=== PATIENT | male | born 1930 | race Caucasian/White ===

== ENCOUNTER → 2016-10-08 | Outpatient (CLI) | payer MEDICARE ==
[~2016-10-08] VITALS: Ht 180.3 cm; Wt 93.4 kg
[~2016-10-08] MED LIST: INSULIN HUMAN REGULAR 1,000 UNITS/10 ML VIAL SQ PRN; LACTATED RINGER'S 1000 ML IV SCH; LISI10TA3 PO; METH5TAB4 PO; METOPROLOL TARTRATE 25 MG TAB PO PRN; OCTR30VI3 IM; ONABOTULINUMTOXINA INJ 100 UNITS/VIAL ONE; ONABOTULINUMTOXINA INJ 100 UNITS/VIAL SCH; PROPOFOL 200 MG/20 ML AMP IV ONE; SODIUM CHLORID 0.9% 500 ML IV SCH; VITA100021 SL; VITA400C2 PO
[2016-10-08 09:41] VITALS: BP 205/82; PULSE 58; RESP 18; TEMP 97.9; O2SAT 100
[2016-10-08 13:08] VITALS: TEMP 97.7
[2016-10-08 13:30] VITALS: BP 155/65; PULSE 56; RESP 16; O2SAT 97
--- NOTE | 2016-10-08 16:08 | EKG ---
Date Performed: 10/08/2016 Time Performed: 09:41:10 PTAGE: 86 years EKG: SINUS BRADYCARDIA RIGHT BUNDLE BRANCH BLOCK LEFT ANTERIOR FASCICULAR BLOCK ABNORMAL ECG NO PREVIOUS TRACING DOCTOR: Jesse Carpio Interpretating Date/Time 10/08/2016 16:08:00
== END ==
LOC: HEND 08:46
PROVIDERS: ATTEND Internal Medicine Gastroenterology
DX: K22.0 Achalasia of cardia (principal); R13.10 Dysphagia, unspecified; K22.2 Esophageal obstruction; K44.9 Diaphragmatic hernia without obstruction or gangrene; R94.31 Abnormal electrocardiogram [ECG] [EKG]
CPT/HCPCS: 43236; 43239; 43248; 88305; 93005; 99156; C1769; J0585; J7120

== ENCOUNTER 2017-11-04 12:09 | Inpatient (IN) | payer MEDICARE ==
[2017-11-04] VITALS (8 sets, daily range): BP systolic 128–184; BP diastolic 67–79; PULSE 65–77; RESP 14–18; TEMP 95.8–97.7; O2SAT 96–100
[~2017-11-04] VITALS: Ht 180.3 cm; Wt 86.0 kg
[~2017-11-04 12:09] MED LIST changes: -INSULIN HUMAN REGULAR 1,000 UNITS/10 ML VIAL SQ PRN; -LACTATED RINGER'S 1000 ML IV SCH; -METOPROLOL TARTRATE 25 MG TAB PO PRN; -ONABOTULINUMTOXINA INJ 100 UNITS/VIAL ONE; -ONABOTULINUMTOXINA INJ 100 UNITS/VIAL SCH; -PROPOFOL 200 MG/20 ML AMP IV ONE; -SODIUM CHLORID 0.9% 500 ML IV SCH
[2017-11-04 13:18] LABS: AUTOMATED NEUTROPHIL # 5.2 TH/MM3 (1.8-7.7); BASOPHIL % 0.7 % (0.0-2.0); EOSINOPHIL % 0.4 % (0.0-4.0); HEMATOCRIT 23.7 % (39.0-51.0); HEMOGLOBIN 7.9 GM/DL (13.0-17.0); LYMPH % 16.9 % (9.0-44.0); LYMPHOCYTE # 1.2 TH/MM3 (1.0-4.8); MEAN CELL VOLUME 91.5 FL (80.0-100.0); MEAN CORPUSCULAR HEMOGLOBIN 30.7 PG (27.0-34.0); MEAN CORPUSCULAR HGB CONC 33.6 % (32.0-36.0); MEAN PLATELET VOLUME 8.5 FL (7.0-11.0); MONO % 11.9 % (0.0-8.0); MONOCYTE # 0.9 TH/MM3 (0-0.9); NEUT % 70.1 % (16.0-70.0); PLATELET COUNT 265 TH/MM3 (150-450); RED BLOOD COUNT 2.59 MIL/MM3 (4.50-5.90); RED CELL DISTRIBUTION WIDTH 15.9 % (11.6-17.2); WHITE BLOOD COUNT 7.3 TH/MM3 (4.0-11.0)
[2017-11-04 13:30] LABS: PROTHROMBIN TIME - PATIENT 10.6 SEC (9.8-11.6)
[2017-11-04 13:36] LABS: ALBUMIN 3.3 GM/DL (3.4-5.0); AST (GOT) 25 U/L (15-37); BICARBONATE 23.6 MEQ/L (21.0-32.0); BLOOD UREA NITROGEN 30 MG/DL (7-18); CALCIUM 8.3 MG/DL (8.5-10.1); CHLORIDE 110 MEQ/L (98-107); GLOMERULAR FILTRATION RATE 32 ML/MIN (>89); GLUCOSE,RANDOM 80 MG/DL (74-106); SODIUM (NA) 140 MEQ/L (136-145)
[2017-11-04 13:39] LABS: ALKALINE PHOSPHATASE 109 U/L (45-117); ALT (GPT) 56 U/L (12-78); TOTAL BILIRUBIN ADULT 0.3 MG/DL (0.2-1.0); TOTAL PROTEIN 6.7 GM/DL (6.4-8.2)
[2017-11-04] MEDS ORDERED: FERR325T18 PO (14:45)
[2017-11-04] MEDS ORDERED: HYDR-3799 PO (14:45)
[2017-11-04] MEDS ORDERED: TAMS0.4C4 PO (14:45)
--- NOTE | 2017-11-04 14:53 | PD ---
HPI Chief Complaint: GI Complaint Time Seen by Provider: 14:33 Travel History International Travel<30 days: No Contact w/Intl Traveler<30days: No Traveled to known affect area: No History of Present Illness HPI 87-year-old male presents for evaluation of GI bleeding. He reports that this morning he had 2 bowel movements with associated dark red blood. Denies any black or tarry stools. He does report that he had some abdominal cramping during the bowel movements but none currently. He reports associated lightheadedness today. He takes a baby aspirin on a daily basis, denies any other anticoagulant use. He reports that he was admitted at [facility] for 8 days for evaluation of GI bleed, discharged 2 days ago. He reports that they could not find the source of the bleeding. He has no other complaints at this time. PFSH Past Medical History Cancer: Yes (SKIN) Cardiovascular Problems: No Diabetes: No Endocrine: No Gastrointestinal Disorders: Yes (REFLUX) Glaucoma: No Genitourinary: No Hepatitis: No Hiatal Hernia: No Hypertension: Yes Immune Disorder: No Musculoskeletal: No Neurologic: No Psychiatric: No Reproductive: No Respiratory: No Thyroid Disease: Yes Tetanus Vaccination: Unknown Influenza Vaccination: No Past Surgical History Abdominal Surgery: Yes (COLECTOMY?) AICD: No Body Medical Devices: RIGHT ANKLE PLATE AND SCREWS Cardiac Surgery: No Ear Surgery: No Endocrine Surgery: No Eye Surgery: Yes (BILAT. CATARACT SX) Genitourinary Surgery: Yes (TURP) Gynecologic Surgery: No Joint Replacement: No Oral Surgery: No Pacemaker: No Thoracic Surgery: Yes (OUTER SKIN NODULES REMOVED) Other Surgery: Yes Social History Alcohol Use: Yes (2 DRINKS/DAY) Tobacco Use: No (QUIT 40 YEARS AGO) Substance Use: No Allergies-Medications (Allergen,Severity, Reaction): Coded Allergies: No Known Allergies (Verified Adverse Reaction, Unknown, 11/04/17) Reported Meds & Prescriptions Reported Meds & Active Scripts Active Reported Hydralazine HCl 25 Mg Tablet 50 Mg PO BID Tamsulosin (Tamsulosin HCl) 0.4 Mg Cap 0.4 Mg PO HS Ferrous Sulfate 325 Mg (65 Mg Iron) Tablet 325 Mg PO DAILY Vitamin B-12 (Cyanocobalamin) 1,000 Mcg Subl 1,000 Mcg SL DAILY Sandostatin LAR Depot Inj (Octreotide Acetate) 30 Mg Kit 30 Mg IM MONTHLY Methimazole 5 Mg Tab 5 Mg PO DAILY Lisinopril 10 Mg Tab 20 Mg PO DAILY Review of Systems Except as stated in HPI: all other systems reviewed are Neg Physical Exam Narrative GENERAL: Well-developed well-nourished male in no acute distress SKIN: Warm and dry. HEAD: Atraumatic. Normocephalic. EYES: Pupils equal and round. No scleral icterus. No injection or drainage. ENT: No nasal bleeding or discharge. Mucous membranes pink and moist. NECK: Trachea midline. No JVD. CARDIOVASCULAR: Regular rate and rhythm. No murmur appreciated. RESPIRATORY: No accessory muscle use. Clear to auscultation. Breath sounds equal bilaterally. GASTROINTESTINAL: Abdomen soft, non-tender, nondistended. Hepatic and splenic margins not palpable. Rectal examination reveals brown stool with some dark red blood mixed in. Heme positive. MUSCULOSKELETAL: No obvious deformities. No clubbing. No cyanosis. No edema. NEUROLOGICAL: Awake and alert. No obvious cranial nerve deficits. Motor grossly within normal limits. Normal speech. PSYCHIATRIC: Appropriate mood and affect; insight and judgment normal. Data Data Last Documented VS Vital Signs Date Time Temp Pulse Resp B/P (MAP) Pulse Ox O2 Delivery O2 Flow Rate FiO2 11/04/17 14:40 75 16 182/77 (112) 98 Room Air 11/04/17 12:11 97.7 Orders Orders Complete Blood Count With Diff (11/04/17 12:17) Comprehensive Metabolic Panel (11/04/17 12:17) Act Partial Throm Time (Ptt) (11/04/17 12:17) Prothrombin Time / Inr (Pt) (11/04/17 12:17) Type And Screen (11/04/17 12:17) Pantoprazole Inj (Protonix Inj) (11/04/17 15:00) Admit Order (Ed Use Only) (11/04/17 15:17) Labs Laboratory Tests Test 11/04/17 12:35 White Blood Count 7.3 TH/MM3 Red Blood Count 2.59 MIL/MM3 Hemoglobin 7.9 GM/DL Hematocrit 23.7 % Mean Corpuscular Volume 91.5 FL Mean Corpuscular Hemoglobin 30.7 PG Mean Corpuscular Hemoglobin Concent 33.6 % Red Cell Distribution Width 15.9 % Platelet Count 265 TH/MM3 Mean Platelet Volume 8.5 FL Neutrophils (%) (Auto) 70.1 % Lymphocytes (%) (Auto) 16.9 % Monocytes (%) (Auto) 11.9 % Eosinophils (%) (Auto) 0.4 % Basophils (%) (Auto) 0.7 % Neutrophils # (Auto) 5.2 TH/MM3 Lymphocytes # (Auto) 1.2 TH/MM3 Monocytes # (Auto) 0.9 TH/MM3 Eosinophils # (Auto) 0.0 TH/MM3 Basophils # (Auto) 0.0 TH/MM3 CBC Comment DIFF FINAL Differential Comment Prothrombin Time 10.6 SEC Prothromb Time International Ratio 1.0 RATIO Activated Partial Thromboplast Time 24.7 SEC Blood Urea Nitrogen 30 MG/DL Creatinine 2.00 MG/DL Random Glucose 80 MG/DL Total Protein 6.7 GM/DL Albumin 3.3 GM/DL Calcium Level 8.3 MG/DL Alkaline Phosphatase 109 U/L Aspartate Amino Transf (AST/SGOT) 25 U/L Alanine Aminotransferase (ALT/SGPT) 56 U/L Total Bilirubin 0.3 MG/DL Sodium Level 140 MEQ/L Potassium Level 4.7 MEQ/L Chloride Level 110 MEQ/L Carbon Dioxide Level 23.6 MEQ/L Anion Gap 6 MEQ/L Estimat Glomerular Filtration Rate 32 ML/MIN MDM Medical Decision Making Medical Screen Exam Complete: Yes Emergency Medical Condition: Yes Medical Record Reviewed: Yes Differential Diagnosis Upper GI bleed, lower GI bleed, AV malformation, polyp, malignancy, peptic ulcer disease, hemorrhoids Narrative Course Lab work obtained in triage reveals a hemoglobin of 7.9, this is lower than his hemoglobin during his hospitalization last week according to his family members. GFR is 32, we do not have a baseline GFR for him. A+ blood type. The patient will be admitted for further evaluation and treatment. Diagnosis Primary Impression: GI bleed Admitting Information Admitting Physician Requests: Admit Dominick Humphrey Nov 04, 2017 14:53
[2017-11-04] MEDS ORDERED: PANTOPRAZOLE SODIUM 40 MG VIAL IVP ONE (15:00)
--- NOTE | 2017-11-04 15:48 | HHI.HP ---
HPI Service [facility] Hospitalists Primary Care Physician Dr. Gerardo Horan Admission Diagnosis GI bleed Chief Complaint: GIB Travel History International Travel<30 Days: No Contact w/Intl Traveler <30 Da: No Traveled to Known Affected Are: No History of Present Illness Mr. Torre is a pleasant 87 y/o WM with hx of carcinoid tumor, follows with Dr. Chadwick and is on monthly Octreotide injections, hx of achalasia/dysphagia and had an EGD with Botox injections in September 2016, HTN, and CKD stage 3. Pt was recently hospitalized at [facility] for about 8 days with GIB. Pts Hgb was around 8-9 initially. He was seen by GI and had an EGD and a colonoscopy which did not reveal any active bleeding. He also had two Nuclear Med GIB scans which were reportedly negative. His Hgb went down to 7 and he received one unit of PRBCs at . Pts H/H reportedly stabilized around 8.5 and the pt was discharged to home 2 days ago. Pt was recommended that should he continue to have bleeding that he had a double balloon enteroscopy. This morning he had a loose stool and was noted to have bright red blood. He had some mild cramping associated with the BM. This prompted him to come to the ED for further evaluation. His labs in the ED noted Hgb 7.9/Hct 23.7. He denies any chest pain, SOB, palpations, nausea/vomiting. He did have some mild dizziness today after walking to the bathroom. Review of Systems Constitutional: COMPLAINS OF: Dizziness, DENIES: Fever, Chills Eyes: DENIES: Vision loss Ears, nose, mouth, throat: DENIES: Hearing loss Respiratory: DENIES: Cough, Shortness of breath Cardiovascular: DENIES: Chest pain, Palpitations, Dyspnea on Exertion, Lower Extremity Edema Gastrointestinal: COMPLAINS OF: Abdominal pain, Bloody stools, DENIES: GERD, Nausea, Reflux, Vomiting, Difficulty Swallowing Genitourinary: DENIES: Hematuria, Dysuria Musculoskeletal: DENIES: Back pain, Neck pain Integumentary: DENIES: Rash Neurologic: DENIES: Headache Psychiatric: DENIES: Confusion Past Family Social History Past Medical History Carcinoid tumor, follows with Dr. Chadwick, s/p surgery and on Octreotide inj monthly CKD, stage 3 HTN Hyperthyroidism Hx of nephrolithiasis Past Surgical History EGD/colonoscopy 10/2017 EGD with dilation/Botox with Dr. Ryan in 09/2016 Carcinoid tumor removal Ankle surgery with hardware placement Reported Medications Hydralazine HCl 50 Mg PO BID Tamsulosin 0.4 Mg PO HS Ferrous Sulfate 325 Mg PO DAILY Vitamin B-12l 1,000 Mcg SL DAILY Sandostatin LAR Depot Inj (Octreotide Acetate) 30 Mg Kit 30 Mg IM MONTHLY Methimazole 5 Mg PO DAILY Lisinopril 20 Mg PO BID ASA 81mg PO DAILY MVI Allergies: Coded Allergies: No Known Allergies (Verified Adverse Reaction, Unknown, 11/04/17) Family History Noncontributory Social History (+)Alcohol use, 1-2 drinks per day, none for the last two weeks Remote hx of tobacco use, quit 45 years ago Denies any illicit drug use Physical Exam Vital Signs Vital Signs Date Time Temp Pulse Resp B/P (MAP) Pulse Ox O2 Delivery O2 Flow Rate FiO2 11/04/17 14:40 75 16 182/77 (112) 98 Room Air 11/04/17 12:11 97.7 77 14 128/69 (88) 98 Room Air Physical Exam GENERAL: This is a well-nourished, well-developed patient, in no apparent distress. HEENT: Atraumatic. Normocephalic. No temporal or scalp tenderness. No scleral icterus. Airway patent. NECK: Trachea midline, supple, nontender. CARDIO: Regular. RESP: CTA bilaterally. No wheezes, rales, or rhonchi. ABD: +BS, soft, non-tender, nondistended. EXT: Extremities without clubbing, cyanosis, or edema. NEURO: Awake and alert. Motor and sensory grossly within normal limits. Normal speech. Laboratory Laboratory Tests Test 11/04/17 12:35 White Blood Count 7.3 Red Blood Count 2.59 Hemoglobin 7.9 Hematocrit 23.7 Mean Corpuscular Volume 91.5 Mean Corpuscular Hemoglobin 30.7 Mean Corpuscular Hemoglobin Concent 33.6 Red Cell Distribution Width 15.9 Platelet Count 265 Mean Platelet Volume 8.5 Neutrophils (%) (Auto) 70.1 Lymphocytes (%) (Auto) 16.9 Monocytes (%) (Auto) 11.9 Eosinophils (%) (Auto) 0.4 Basophils (%) (Auto) 0.7 Neutrophils # (Auto) 5.2 Lymphocytes # (Auto) 1.2 Monocytes # (Auto) 0.9 Eosinophils # (Auto) 0.0 Basophils # (Auto) 0.0 CBC Comment DIFF FINAL Differential Comment Prothrombin Time 10.6 Prothromb Time International Ratio 1.0 Activated Partial Thromboplast Time 24.7 Blood Urea Nitrogen 30 Creatinine 2.00 Random Glucose 80 Total Protein 6.7 Albumin 3.3 Calcium Level 8.3 Alkaline Phosphatase 109 Aspartate Amino Transf (AST/SGOT) 25 Alanine Aminotransferase (ALT/SGPT) 56 Total Bilirubin 0.3 Sodium Level 140 Potassium Level 4.7 Chloride Level 110 Carbon Dioxide Level 23.6 Anion Gap 6 Estimat Glomerular Filtration Rate 32 Result Diagram: 11/04/17 1235 11/04/17 1235 Caprini VTE Risk Assessment Caprini VTE Risk Assessment: Mod/High Risk (score >= 2) VTE Pharm Contraindication: Active bleeding Caprini Risk Assessment Model Point Value = 1 Point Value = 2 Point Value = 3 Point Value = 5 Age 41-60 Minor surgery BMI > 25 kg/m2 Swollen legs Varicose veins or History of unexplained or recurrent spontaneous Oral contraceptives or hormone replacement Sepsis (< 1 month) Serious lung disease, including pneumonia (< 1 month) Abnormal pulmonary function Acute myocardial infarction Congestive heart failure (< 1 month) History of inflammatory bowel disease Medical patient at bed rest Age 61-74 Arthroscopic surgery Major open surgery (> 45 min) Laparoscopic surgery (> 45 min) Malignancy Confined to bed (> 72 hours) Immobilizing plaster cast Central venous access Age >= 75 History of VTE Family history of VTE Factor V Leiden Prothrombin [id number] Lupus anticoagulant Anticardiolipin antibodies Elevated serum homocysteine Heparin-induced thrombocytopenia Other congenital or acquired thrombophilia Stroke (< 1 month) Elective arthroplasty Hip, pelvis, or leg fracture Acute spinal cord injury (< 1 month) Prophylaxis Regimen Total Risk Factor Score Risk Level Prophylaxis Regimen 0-1 Low Early ambulation 2 Moderate Order ONE of the following: *Sequential Compression Device (SCD) *Heparin 5000 units SQ BID 3-4 Higher Order ONE of the following medications: *Heparin 5000 units SQ TID *Enoxaparin/Lovenox 40 mg SQ daily (WT < 150 kg, CrCl > 30 mL/min) *Enoxaparin/Lovenox 30 mg SQ daily (WT < 150 kg, CrCl > 10-29 mL/min) *Enoxaparin/Lovenox 30 mg SQ BID (WT < 150 kg, CrCl > 30 mL/min) AND/OR *Sequential Compression Device (SCD) 5 or more Highest Order ONE of the following medications: *Heparin 5000 units SQ TID (Preferred with Epidurals) *Enoxaparin/Lovenox 40 mg SQ daily (WT < 150 kg, CrCl > 30 mL/min) *Enoxaparin/Lovenox 30 mg SQ daily (WT < 150 kg, CrCl > 10-29 mL/min) *Enoxaparin/Lovenox 30 mg SQ BID (WT < 150 kg, CrCl > 30 mL/min) AND *Sequential Compression Device (SCD) Assessment and Plan Problem List: (1) GI bleed ICD Codes: K92.2 - Gastrointestinal hemorrhage, unspecified Status: Acute Plan: Anemia, acute GIB/hematochezia - Pt is an 87 y/o WM with hx of carcinoid tumor, follows with Dr. Chadwick and is on monthly Octreotide injections, hx of achalasia/dysphagia and had an EGD with Botox injections in September 2016, HTN, and CKD stage 3. - Pt was recently hospitalized at [facility] for about 8 days with GIB. Pts Hgb was around 8-9 initially. He was seen by GI and had an EGD and a colonoscopy which did not reveal any active bleeding per the discharge summary report. He also had two Nuclear Med GIB scans which were reportedly negative. His Hgb went down to 7 and he received one unit of PRBCs at . Pts H/H reportedly stabilized and the pt was discharged to home 2 days ago. - This morning he had a loose stool and was noted to have bright red blood. He had some mild cramping associated with the BM. - His labs in the ED noted Hgb 7.9/Hct 23.7. He did have some mild dizziness today after walking to the bathroom. - We will transfuse 2 units PRBCs today - Consult GI, case was discussed with Dr. Landon - Monitor H/H post transfusion - Monitor for active GIB - Recheck labs in AM - Supportive care - No chemical DVT prophylaxis due to bleeding HTN - Home meds continued, hold parameters CKD, stage 3 - Labs are slightly worse than baseline, likely secondary to GIB - Recheck labs in AM after transfusion. Hyperthyroidism - Home meds continued Hx of Carcinoid tumor - Pt follows with Dr. Chadwick - He receives monthly Octreotide injections (2) Anemia ICD Codes: D64.9 - Anemia, unspecified (3) HTN (hypertension) ICD Codes: I10 - Essential (primary) hypertension (4) Hyperthyroidism ICD Codes: E05.90 - Thyrotoxicosis, unspecified without thyrotoxic crisis or storm (5) Hx of benign carcinoid tumor ICD Codes: Z86.012 - Personal history of benign carcinoid tumor (6) CKD (chronic kidney disease) stage 3, GFR 30-59 ml/min ICD Codes: N18.3 - Chronic kidney disease, stage 3 (moderate) Physician Certification 2 Midnight Certification Type: Admission for Inpatient Services Order for Inpatient Services The services are ordered in accordance with Medicare regulations or non- Medicare payer requirements, as applicable. In the case of services not specified as inpatient-only, they are appropriately provided as inpatient services in accordance with the 2-midnight benchmark. Estimated LOS (days): 2 2 days is the estimated time the patient will need to remain in the hospital, assuming treatment plan goals are met and no additional complications. Post-Hospital Plan: Not yet determined Carol Hathaway Nov 04, 2017 15:48
[2017-11-04] MEDS ORDERED: PANTOPRAZOLE SOD 40 MG DELAYED RELEASE TAB PO ONE (16:15)
--- NOTE | 2017-11-04 16:51 | PD.CONS ---
HPI History of Present Illness This is a 87 year old obese male who was admitted to [facility] on . According to the record patient was just discharged from [facility] for approximately 8 days with a GI bleed. Patient was followed per GI during that hospital stay and had an EGD and colonoscopy which did not reveal any active bleeding. He also had 2 nuclear scans which were reported negative. This a.m. patient was up at home, ate some oatmeal, and little later ate a cream cheese bagel. Around 9:30 he had a cramping sensation in his lower abdomen with the feeling of a diarrhea stool. He went to the bathroom and had dark loose stool with moderate amount of red blood noted. Patient then was brought back to the emergency room for further evaluation with 2 family members at his side. Currently patient did note some nausea this morning which has been off and on through the day, vomited 1 this morning similar clear fluid after the diarrhea bloody stool, but no further diarrhea or bloody stool noted since this a.m. patient does report some weakness and dizziness when standing and lying, noted a pounding headache which has waxed and waned and a "funny feeling in his abdomen". He also noted mid to lower abdominal pain left and right lower quadrants before his diarrhea episode. Current hemoglobin on admission labs was 7.9 hematocrit 23.7. Patient is followed per the GI group in [place] and according to the record is on monthly octreotide injections. He also had Botox injections with EGD in September 2017. (Shahnaz Kang) [facility] Past Medical History GI bleed Symptomatic anemia Loose stools History of carcinoid tumor History of dysphasia Hypertension Chronic kidney disease stage III Hyperthyroidism Nephrolithiasis Achalasia Past Surgical History EGD colonoscopy October 2017 EGD with dilatation September 2017 with Botox injection Right ankle surgery with hardware replacement Carcinoid tumor removal (Shahnaz Kang) Coded Allergies: No Known Allergies (Verified Allergy, Unknown, 11/04/17) Medications Current medications include Protonix Ferrous sulfate 325 mg by mouth daily Vitamin B12 5000 g sublingual daily Sandostatin 30 mg daily at IM monthly Lisinopril 20 mg by mouth twice a day Aspirin 81 mg daily Methimazole 5 mg daily Multivitamins Social History Nonsmoker EtOH 1-2 drinks a day is his norm No other illicit drug use (Shahnaz Kang) Review of Systems Constitutional: COMPLAINS OF: Fatigue, Dizziness Gastrointestinal: COMPLAINS OF: Abdominal pain, Bloody stools, Diarrhea, Nausea , Vomiting (Shahnaz Kang) GI Exam Vitals I&O Vital Signs Date Time Temp Pulse Resp B/P (MAP) Pulse Ox O2 Delivery O2 Flow Rate FiO2 11/04/17 16:04 67 14 166/70 (102) 100 Room Air 11/04/17 14:40 75 16 182/77 (112) 98 Room Air 11/04/17 12:11 97.7 77 14 128/69 (88) 98 Room Air Laboratory Test 11/04/17 12:35 White Blood Count 7.3 TH/MM3 Red Blood Count 2.59 MIL/MM3 Hemoglobin 7.9 GM/DL Hematocrit 23.7 % Mean Corpuscular Volume 91.5 FL Mean Corpuscular Hemoglobin 30.7 PG Mean Corpuscular Hemoglobin Concent 33.6 % Red Cell Distribution Width 15.9 % Platelet Count 265 TH/MM3 Mean Platelet Volume 8.5 FL Neutrophils (%) (Auto) 70.1 % Lymphocytes (%) (Auto) 16.9 % Monocytes (%) (Auto) 11.9 % Eosinophils (%) (Auto) 0.4 % Basophils (%) (Auto) 0.7 % Neutrophils # (Auto) 5.2 TH/MM3 Lymphocytes # (Auto) 1.2 TH/MM3 Monocytes # (Auto) 0.9 TH/MM3 Eosinophils # (Auto) 0.0 TH/MM3 Basophils # (Auto) 0.0 TH/MM3 CBC Comment DIFF FINAL Differential Comment Prothrombin Time 10.6 SEC Prothromb Time International Ratio 1.0 RATIO Activated Partial Thromboplast Time 24.7 SEC Blood Urea Nitrogen 30 MG/DL Creatinine 2.00 MG/DL Random Glucose 80 MG/DL Total Protein 6.7 GM/DL Albumin 3.3 GM/DL Calcium Level 8.3 MG/DL Alkaline Phosphatase 109 U/L Aspartate Amino Transf (AST/SGOT) 25 U/L Alanine Aminotransferase (ALT/SGPT) 56 U/L Total Bilirubin 0.3 MG/DL Sodium Level 140 MEQ/L Potassium Level 4.7 MEQ/L Chloride Level 110 MEQ/L Carbon Dioxide Level 23.6 MEQ/L Anion Gap 6 MEQ/L Estimat Glomerular Filtration Rate 32 ML/MIN Physical Examination HEENT: Pupils round and reactive to light; normocephalic; atraumatic; no jaundice. Oral cavity clean NECK: Neck is supple, no JVD, no lymphadenopathy. CHEST: Chest is clear to auscultation and percussion. CARDIAC: Regular rate and rhythm with no murmur gallop or rubs. ABDOMEN: Soft, nondistended, nontender; no hepatosplenomegaly; bowel sounds are present in all four quadrants. EXTREMITIES: Trace left extremity edema , right lower extremity 1+ edema. SKIN: Facial color pale pink ,Normal turgor for his age; no rash; no jaundice. GANG SAWYER: No focal deficits; alert and oriented times three. Speech is clear (Shahnaz Kang) Assessment and Plan Plan GI bleed, bloody loose stool noted this a.m. on 11/04/17 at approximately 0930. No further diarrhea or bloody stools noted. EGD performed on September 2017, EGD and colonoscopy in October 2017. Patient is currently on monthly octreotide injections, and did receive Botox injection on September 2017. Those records have been ordered for review. Anemia symptomatic, current hemoglobin 7.9, patient is to receive 2 units of packed RBCs today/ currently pending. Abdominal pain, mid to lower left and right cramping. Symptoms noted with loose diarrhea bloody stool this morning, currently stable Plan PPI Protonix 40 mg daily Ferrous sulfate 325 mg by mouth twice a day Plan is to transfuse 2 units today, we'll also transfuse as necessary based on patient's symptoms Monitor for any acute further bleeding episodes If any further bleeding is noted, planned for angiogram with embolization. Monitor labs which include hemoglobin and hematocrit daily for now Once patient is stabilized, patient will need outpatient capsule endoscopy Supportive care This patient was seen by myself and Dr. Landon, this note was done on his behalf (Shahnaz Kang) Physician Comments Seen and examined with FERNANDO, no active bleeding at present. Last bleeding episode this morning around 9am. Recent barr includes egd/colonoscopy and bleeding scans x 2. If rebleeds would recommend angiogram with embolization. Transfuse as needed. Monitor labs. Reports requested form [facility]. Discussed with primary team. thank you (Carole Landon MD) Shahnaz Kang Nov 04, 2017 16:51 Carole Landon MD Nov 04, 2017 17:45
[2017-11-04] MEDS: TAMSULOSIN HCL 0.4 MG CAP PO SCH (19:19)
[2017-11-04] MEDS: hydrALAZINE HCL 25 MG TAB PO SCH (19:19)
[2017-11-04] MEDS: ONDANSETRON HCL 4 MG/2 ML VIAL IV PUSH PRN (19:19)
[2017-11-04] MEDS: LISINOPRIL 20 MG TAB PO SCH (19:20)
[2017-11-05] VITALS (13 sets, daily range): BP systolic 133–178; BP diastolic 55–88; PULSE 56–78; RESP 16–20; TEMP 96.1–97.6; O2SAT 95–99
[2017-11-05 04:42] LABS: AUTOMATED NEUTROPHIL # 2.8 TH/MM3 (1.8-7.7); BASOPHIL % 0.9 % (0.0-2.0); EOSINOPHIL # 0.1 TH/MM3 (0-0.4); EOSINOPHIL % 1.6 % (0.0-4.0); HEMOGLOBIN 8.5 GM/DL (13.0-17.0); LYMPH % 25.9 % (9.0-44.0); LYMPHOCYTE # 1.3 TH/MM3 (1.0-4.8); MEAN CELL VOLUME 90.1 FL (80.0-100.0); MEAN CORPUSCULAR HEMOGLOBIN 30.6 PG (27.0-34.0); MEAN CORPUSCULAR HGB CONC 33.9 % (32.0-36.0); MEAN PLATELET VOLUME 8.5 FL (7.0-11.0); MONO % 14.5 % (0.0-8.0); MONOCYTE # 0.7 TH/MM3 (0-0.9); NEUT % 57.1 % (16.0-70.0); PLATELET COUNT 198 TH/MM3 (150-450); RED BLOOD COUNT 2.77 MIL/MM3 (4.50-5.90); RED CELL DISTRIBUTION WIDTH 15.2 % (11.6-17.2)
[2017-11-05 05:01] LABS: BICARBONATE 26.3 MEQ/L (21.0-32.0); CALCIUM 8.5 MG/DL (8.5-10.1); CREATININE 1.93 MG/DL (0.60-1.30)
--- NOTE | 2017-11-05 06:55 | HHI.GIFU ---
Subjective Remarks Pt resting in bed Had a BM right before my exam States it continues to be bloody Denies abdominal pain Had soup and cranberry juice this morning for breakfast (Lidia Hernández) Objective Vitals I&O Vital Signs Date Time Temp Pulse Resp B/P (MAP) Pulse Ox O2 Delivery O2 Flow Rate FiO2 11/05/17 04:00 96.1 58 16 133/57 (82) 97 11/05/17 03:28 96.9 63 20 144/70 99 11/05/17 01:35 96.1 78 17 138/60 95 11/05/17 01:15 96.1 78 17 138/60 95 11/05/17 00:00 96.9 64 16 147/55 (85) 95 11/04/17 22:20 97.6 65 18 146/71 96 11/04/17 22:04 96.7 72 18 144/67 97 11/04/17 21:00 96.1 66 18 152/67 (95) 97 11/04/17 20:00 96.1 77 16 184/68 (106) 99 11/04/17 18:23 95.8 73 17 184/79 (114) 99 11/04/17 16:04 67 14 166/70 (102) 100 Room Air 11/04/17 14:40 75 16 182/77 (112) 98 Room Air 11/04/17 12:11 97.7 77 14 128/69 (88) 98 Room Air I/O 11/04/17 11/04/17 11/04/17 11/05/17 11/05/17 11/05/17 07:00 15:00 23:00 07:00 15:00 23:00 Intake Total 1040 ml Output Total 1000 ml Balance 40 ml Intake Oral 240 ml Packed Cells 800 ml Output Urine Total 1000 ml # Voids 2 # Bowel Movements 1 Laboratory Laboratory Tests Test 11/04/17 12:35 11/05/17 04:08 White Blood Count 7.3 5.0 Red Blood Count 2.59 2.77 Hemoglobin 7.9 8.5 Hematocrit 23.7 25.0 Mean Corpuscular Volume 91.5 90.1 Mean Corpuscular Hemoglobin 30.7 30.6 Mean Corpuscular Hemoglobin Concent 33.6 33.9 Red Cell Distribution Width 15.9 15.2 Platelet Count 265 198 Mean Platelet Volume 8.5 8.5 Neutrophils (%) (Auto) 70.1 57.1 Lymphocytes (%) (Auto) 16.9 25.9 Monocytes (%) (Auto) 11.9 14.5 Eosinophils (%) (Auto) 0.4 1.6 Basophils (%) (Auto) 0.7 0.9 Neutrophils # (Auto) 5.2 2.8 Lymphocytes # (Auto) 1.2 1.3 Monocytes # (Auto) 0.9 0.7 Eosinophils # (Auto) 0.0 0.1 Basophils # (Auto) 0.0 0.0 CBC Comment DIFF FINAL DIFF FINAL Differential Comment Prothrombin Time 10.6 Prothromb Time International Ratio 1.0 Activated Partial Thromboplast Time 24.7 Blood Urea Nitrogen 30 29 Creatinine 2.00 1.93 Random Glucose 80 117 Total Protein 6.7 Albumin 3.3 Calcium Level 8.3 8.5 Alkaline Phosphatase 109 Aspartate Amino Transf (AST/SGOT) 25 Alanine Aminotransferase (ALT/SGPT) 56 Total Bilirubin 0.3 Sodium Level 140 141 Potassium Level 4.7 4.7 Chloride Level 110 110 Carbon Dioxide Level 23.6 26.3 Anion Gap 6 5 Estimat Glomerular Filtration Rate 32 33 Physical Exam HEENT: Normocephalic; atraumatic CHEST: Even, unlabored CARDIAC: RRR ABDOMEN: Soft, nondistended, nontender; bowel sounds active EXTREMITIES: No clubbing, cyanosis, or edema. SKIN: Normal; no rash; no jaundice. 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 (Lidia HernándezP) Assessment and Plan Plan GI bleed, bloody loose stool noted this a.m. on 11/04/17 at approximately 0930. No further diarrhea or bloody stools noted. EGD performed on September 2017, EGD and colonoscopy in October 2017. Patient is currently on monthly octreotide injections, and did receive Botox injection on September 2017. Those records have been ordered for review. Anemia symptomatic, current hemoglobin 7.9, patient is to receive 2 units of packed RBCs today/ currently pending. Abdominal pain, mid to lower left and right cramping. Symptoms noted with loose diarrhea bloody stool this morning, currently stable (11/05) --> S/P 2 U PRBCs yesterday, H/H last checked at 4 am with only a slight increase. Currently 8.5/25. Pt with BM this morning which continues to be bloody. States only one episode since yesterday. Denies abdominal pain. Plan: NM bleeding scan If active bleeding, IR for angiogram with embolization Serial H/H Transfuse to keep hgb over 8 Continue Protonix Further recommendations based on clinical course Patient has been seen and examined by myself and Dr. Landon and this note is written on his behalf (Lidia Hernández) Physician Comments Seen and examined with FERNANDO, bleeding scan +ve. Angiogram -ve. ? Portal vein thrombus. Doppler u/s ordered. Liquid diet. Transfuse as needed. If continues to bleed consider transfer to tertiary center for balloon enteroscopy. Discussed with Dr. Grande. Dr. Montalvo following from tomorrow. (Carole Landon MD) Lidia Hernández Nov 05, 2017 06:55 Carole Landon MD Nov 05, 2017 14:59
[2017-11-05] MEDS: LISINOPRIL 20 MG TAB PO SCH ×2 (08:17→21:05)
[2017-11-05] MEDS: hydrALAZINE HCL 25 MG TAB PO SCH ×2 (08:17→21:05)
[2017-11-05] MEDS: FERROUS SULFATE 325 MG (65 MG ELEMENTAL IRON) TAB PO SCH (08:19)
[2017-11-05] MEDS: METHIMAZOLE 5 MG TAB PO SCH (08:20)
[2017-11-05] MEDS: PANTOPRAZOLE SOD 40 MG DELAYED RELEASE TAB PO SCH (08:20)
--- NOTE | 2017-11-05 09:41 | HHI.PR ---
Subjective Remarks Pt reports that he had one loose bloody BM early this morning. He also noted that when he pulled his pants up after the BM he lost his balance and fell in the bathroom. He denies any LOC or head or bodily injury. Objective Vitals Vital Signs Date Time Temp Pulse Resp B/P (MAP) Pulse Ox O2 Delivery O2 Flow Rate FiO2 11/05/17 08:00 96.9 60 18 160/74 (102) 97 11/05/17 04:00 96.1 58 16 133/57 (82) 97 11/05/17 03:28 96.9 63 20 144/70 99 11/05/17 01:35 96.1 78 17 138/60 95 11/05/17 01:15 96.1 78 17 138/60 95 11/05/17 00:00 96.9 64 16 147/55 (85) 95 11/04/17 22:20 97.6 65 18 146/71 96 11/04/17 22:04 96.7 72 18 144/67 97 11/04/17 21:00 96.1 66 18 152/67 (95) 97 11/04/17 20:00 96.1 77 16 184/68 (106) 99 11/04/17 18:23 95.8 73 17 184/79 (114) 99 11/04/17 16:04 67 14 166/70 (102) 100 Room Air 11/04/17 14:40 75 16 182/77 (112) 98 Room Air 11/04/17 12:11 97.7 77 14 128/69 (88) 98 Room Air Result Diagram: 11/05/17 0408 11/05/17 0408 Other Results Laboratory Tests Test 11/04/17 12:35 11/05/17 04:08 White Blood Count 7.3 TH/MM3 5.0 TH/MM3 Red Blood Count 2.59 MIL/MM3 2.77 MIL/MM3 Hemoglobin 7.9 GM/DL 8.5 GM/DL Hematocrit 23.7 % 25.0 % Mean Corpuscular Volume 91.5 FL 90.1 FL Mean Corpuscular Hemoglobin 30.7 PG 30.6 PG Mean Corpuscular Hemoglobin Concent 33.6 % 33.9 % Red Cell Distribution Width 15.9 % 15.2 % Platelet Count 265 TH/MM3 198 TH/MM3 Mean Platelet Volume 8.5 FL 8.5 FL Neutrophils (%) (Auto) 70.1 % 57.1 % Lymphocytes (%) (Auto) 16.9 % 25.9 % Monocytes (%) (Auto) 11.9 % 14.5 % Eosinophils (%) (Auto) 0.4 % 1.6 % Basophils (%) (Auto) 0.7 % 0.9 % Neutrophils # (Auto) 5.2 TH/MM3 2.8 TH/MM3 Lymphocytes # (Auto) 1.2 TH/MM3 1.3 TH/MM3 Monocytes # (Auto) 0.9 TH/MM3 0.7 TH/MM3 Eosinophils # (Auto) 0.0 TH/MM3 0.1 TH/MM3 Basophils # (Auto) 0.0 TH/MM3 0.0 TH/MM3 CBC Comment DIFF FINAL DIFF FINAL Differential Comment Prothrombin Time 10.6 SEC Prothromb Time International Ratio 1.0 RATIO Activated Partial Thromboplast Time 24.7 SEC Blood Urea Nitrogen 30 MG/DL 29 MG/DL Creatinine 2.00 MG/DL 1.93 MG/DL Random Glucose 80 MG/DL 117 MG/DL Total Protein 6.7 GM/DL Albumin 3.3 GM/DL Calcium Level 8.3 MG/DL 8.5 MG/DL Alkaline Phosphatase 109 U/L Aspartate Amino Transf (AST/SGOT) 25 U/L Alanine Aminotransferase (ALT/SGPT) 56 U/L Total Bilirubin 0.3 MG/DL Sodium Level 140 MEQ/L 141 MEQ/L Potassium Level 4.7 MEQ/L 4.7 MEQ/L Chloride Level 110 MEQ/L 110 MEQ/L Carbon Dioxide Level 23.6 MEQ/L 26.3 MEQ/L Anion Gap 6 MEQ/L 5 MEQ/L Estimat Glomerular Filtration Rate 32 ML/MIN 33 ML/MIN Objective Remarks General: NAD, AAox3 Chest: CTA Cardiac: Regular Abd: +BS, soft ND/NT Ext: No edema A/P Problem List: (1) GI bleed ICD Codes: K92.2 - Gastrointestinal hemorrhage, unspecified Status: Acute Plan: Anemia, acute GIB/hematochezia - Pt is an 87 y/o WM with hx of carcinoid tumor, follows with Dr. Chadwick and is on monthly Octreotide injections, hx of achalasia/dysphagia and had an EGD with Botox injections in September 2016, HTN, and CKD stage 3. - Pt was recently hospitalized at [facility] for about 8 days with GIB. Pts Hgb was around 8-9 initially. He was seen by GI and had an EGD and a colonoscopy which did not reveal any active bleeding per the discharge summary report. He also had two Nuclear Med GIB scans which were reportedly negative. His Hgb went down to 7 and he received one unit of PRBCs at . Pts H/H reportedly stabilized and the pt was discharged to home 2 days ago. - On the morning of admission he had a loose stool and was noted to have bright red blood. He had some mild cramping associated with the BM. - His labs in the ED noted Hgb 7.9/Hct 23.7. He did have some mild dizziness today after walking to the bathroom. - Pt was transfused with 2 units PRBCs on 11/04 - GI following - Repeat labs this morning with H/H 8.5/25.0 - pt had another bloody BM today. - GIB scan ordered, per IR they cannot do Angiogram for embolization without doing the bleeding scan prior. - Monitor for active GIB - Recheck labs in AM - Supportive care - No chemical DVT prophylaxis due to bleeding HTN - Home meds continued, hold parameters CKD, stage 3 - Labs are slightly worse than baseline at admission, likely secondary to GIB - Repeat labs this morning improving with Cr 1.93. Hyperthyroidism - Home meds continued Hx of Carcinoid tumor - Pt follows with Dr. Chadwick - He receives monthly Octreotide injections (2) Anemia ICD Codes: D64.9 - Anemia, unspecified (3) HTN (hypertension) ICD Codes: I10 - Essential (primary) hypertension (4) Hyperthyroidism ICD Codes: E05.90 - Thyrotoxicosis, unspecified without thyrotoxic crisis or storm (5) Hx of benign carcinoid tumor ICD Codes: Z86.012 - Personal history of benign carcinoid tumor (6) CKD (chronic kidney disease) stage 3, GFR 30-59 ml/min ICD Codes: N18.3 - Chronic kidney disease, stage 3 (moderate) Assessment and Plan Patient examined. Assessment and plan formulated with Carol Hathaway PA-C. I agree with the above. called by radiologist Dr Locke. They prefer NM bleeding scan and if positive then angio. Carol Hathaway Nov 05, 2017 09:41 Bubba Stark MD Nov 05, 2017 12:21
[2017-11-05] MEDS ORDERED: PNEUMOCOCCAL POLYVALENT INJ 25 MCG/0.5 ML SYR IM ONE (10:00)
--- NOTE | 2017-11-05 13:48 | RADRPT ---
EXAM DATE/TIME: 11/05/2017 11:08 [facility] COMPARISON: No previous studies available for comparison. INDICATIONS : Rectal bleeding. DOSE: 21 mCi Tc99m Ultratag labeled red blood cells IV IMAGIN hrs MEDICAL HISTORY : Hypertension. Carcinoid tumor. SURGICAL HISTORY : Right ankle surgery and carcinoid tumor removal. ENCOUNTER: Initial ACUITY: 1 week PAIN SCALE: 0/10 LOCATION: abdomen. TECHNIQUE: Following the modified in vitro labeling of autologous red cells, dynamic continuous images were acqu ired for the specified interval. FINDINGS: BIODISTRIBUTION: There is a very good labeling of red cells without significant uptake in the gastric wall. There is good delineation of the blood pool of the spleen and abdominal vessels. BLEEDING: Episodes of bleeding occurred during the 2 hours of continuous observation, origin A. and in the cent ral epigastric region. The 1st episode is seen at 37 minutes, a 2nd at 60 minutes and the 3rd at 83 minutes. On the 3rd episode, there is significant increase in activity passing through to distal loo ps of small bowel. CONCLUSION: 1. Multiple episodes of active GI bleeding during the examination, most probably originating from mid to distal small bowel. Tien Barrett MD on November 05, 2017 at 13:39 Board Certified Radiologist. This report was verified electronically.
[2017-11-05] MEDS ORDERED: MIDAZOLAM HCL 2 MG/2 ML VIAL ONE (13:49)
[2017-11-05] MEDS ORDERED: fentaNYL CITRATE 250 MCG/5 ML AMP ONE (13:49)
[2017-11-05] MEDS ORDERED: SODIUM CHLOR 0.9% 1000 ML INJ 1,000 ML IV SCH (14:51)
--- NOTE | 2017-11-05 14:55 | PD.RAD ---
Post Procedure Progress Note Pre Procedure Diagnosis: (1) GI bleed (2) Anemia Post Procedure Diagnosis: (1) GI bleed (2) Anemia Procedure Date: Nov 05, 2017 Supervising Radiologist: Tien Locke JR Proceduralist/Assist: Jonathan Coleman, RT(R), Brock Snider, RT(R) Anesthesia: Conscious Sedation Plan of Activity Patient to Unit: ROPU Patient Condition: Good See PACS Report for procedural detail/treatment Vascular-Arterial Procedure Procedure 1 Procedure Site: Celiac, Superior Mesenteric Artery Procedure(s): Angiogram Access Access Site(s): Right Femoral Artery Findings: Selective mesenteric angiogram shows no source of hemorrhage. GI bleeding scan suggest small bowel. There is lack of filling of the portal vein and mesenteric varicosities are noted involving the small bowel. I am concerned for portal vein HTN and possible cirrhosis. I spoke to Dr Stark. A doppler US of the liver can be performed to better evaluate. Plan Liver doppler US Jr. Chucky,Tien Gray MD Nov 05, 2017 14:55
[2017-11-05] MEDS ORDERED: IODIXANOL 320 MG/ML 50 ML VIAL (for RAD SPEC) I-ARTERIAL ONE (14:57)
--- NOTE | 2017-11-05 15:57 | RADRPT ---
EXAM DATE/TIME: 11/05/2017 15:04 [facility] COMPARISON: No previous studies available for comparison. INDICATIONS : Patient presents with positive nuclear medicine bleeding study in need of mesenteric angiogram with p ossible embolization. MEDICAL HISTORY : Carcinoid tumor, follows with Dr. Chadwick, s/p surgery and on Octreotide inj monthly CKD, stage 3 HTN Hyperthyroidism Hx of nephrolithiasis SURGICAL HISTORY : EGD/colonoscopy 10/2017 EGD with dilation/Botox with Dr. Ryan in 09/2016 Carcinoid tumor removal Ankle surgery with hardware placement ENCOUNTER: Initial ACUITY: 1 day PAIN SCORE: 0/10 LOCATION: N/A FLUORO TIME: 9.9 minutes IMAGE SERIES: 8 ACCESS SITE: Right Femoral artery SEDATION TIME: 60 minutes CONTRAST: 1.) 115 cc Visipaque (iodixanol) MEDICATION(S): 1.) 1 mg midazolam (Versed) IV 2.) 100 mcg fentanyl (Sublimaze) IV DEVICE(S): 1.) Right common femoral artery Syvek pad PROCEDURE : 1. Ultrasound-guided puncture of the access site. 2. Conscious sedation with continuous EKG and Oximetry monitoring. 3. Angiography of the celiac artery 4. Angiography of the superior mesenteric artery 5. Angiography of the common hepatic artery I reviewed the nuclear medicine bleeding scan. Hemorrhage is felt to be localized to the small bowel. The risks, benefits and alternatives to the procedure were explained and verbal and written consent was obtained. The site was prepped in sterile fashion. Full sterile technique was used, including c ap, mask, sterile gloves and gown and a large sterile sheet. Hand hygiene and 2% chlorhexidine and/o r betadine/alcohol prep was utilized per protocol for cutaneous antisepsis. Sterile gel and sterile probe cover were utilized for ultrasound guidance. The skin and subcutaneous tissues were infiltrate d with local anesthetic solution. With ultrasound and fluoroscopic guidance the common femoral artery was punctured and a vascular chand th was placed. The celiac axis was selected utilizing a estes's hook catheter. An angiogram was performed from th is level which reveals a focal high grade stenosis occurring less than 1 cm from its origin. There re massiel antegrade flow through this segment however there is retrograde flow within the common hepatic artery from SMA collateralization. Access across the stenosis and into the common hepatic artery was performed. An angiogram was performed from the hepatic artery level. This opacifies the common hepati c, proper hepatic, and GDA. No source of hemorrhage observed. Selection of the superior mesenteric artery was then performed. Selective angiography revealed no nalini rce of active hemorrhage. No abnormal vessel observed. In the venous phase of the study and varicosit ies are seen involving the mesentery within the small bowel within the left midabdomen. There is no v isualization of the portal vein. The puncture site was closed with manual pressure and hemostasis was obtained. The patient tolerated the procedure well and there were no complications. Conscious sedation was performed with the prescribed dosages and duration as above in the presence of an independent trained radiology nurse to assist in the monitoring of the patient. EKG and oximetry remained stable throughout the procedure. CONCLUSION: 1. No source of active hemorrhage observed. 2. Lack of visualization of the portal vein and varicosities involving the mesentery of the small bow el. This would raise concern for portal hypertension and possible portal vein occlusion. It is possib le source of hemorrhage is the varicosities. No endovascular therapy is available for these varicosit ies. A Doppler ultrasound of the liver is suggested to evaluate the portal vein. Tien Locke Jr., MD on November 05, 2017 at 15:50 Board Certified Radiologist. This report was verified electronically.
[2017-11-05 18:44] LABS: HEMATOCRIT 25.1 % (39.0-51.0); HEMOGLOBIN 8.7 GM/DL (13.0-17.0)
[2017-11-05] MEDS: TAMSULOSIN HCL 0.4 MG CAP PO SCH (21:05)
[2017-11-06] VITALS (12 sets, daily range): BP systolic 96–155; BP diastolic 48–96; PULSE 55–85; RESP 17–20; TEMP 95.5–96.8; O2SAT 94–99
[2017-11-06] MEDS: LISINOPRIL 20 MG TAB PO SCH ×3 (09:00→20:58)
[2017-11-06] MEDS: hydrALAZINE HCL 25 MG TAB PO SCH ×3 (09:00→20:58)
[2017-11-06] MEDS: METHIMAZOLE 5 MG TAB PO SCH (09:32)
[2017-11-06] MEDS: FERROUS SULFATE 325 MG (65 MG ELEMENTAL IRON) TAB PO SCH (09:33)
[2017-11-06] MEDS: PANTOPRAZOLE SOD 40 MG DELAYED RELEASE TAB PO SCH (09:33)
--- NOTE | 2017-11-06 09:34 | RADRPT ---
EXAM DATE/TIME: 11/06/2017 08:49 [facility] COMPARISON: No previous studies available for comparison. EXTERNAL COMPARISON : [facility]. CT Abdomen and pelvis, , October 18, 2017and 05/25/2016, multiple. INDICATIONS : Elevated labs. MEDICAL HISTORY : Thyroid disease. GERD. Hypertension. Kidney stones. SURGICAL HISTORY : Right ankle surgery. ENCOUNTER: Initial ACUITY: 1 day PAIN SCORE: 0/10 LOCATION: Bilateral upper quadrant MEASUREMENTS: LIVER: 16.3 cm length COMMON DUCT: 3 mm RIGHT KIDNEY: 10.3 x 4.4 x 5.3 cm SPLEEN: 11.2 cm length FINDINGS: LIVER: Normal echotexture without focal lesion or ductal dilatation. COMMON DUCT: No intraluminal mass or stone visualized. GALLBLADDER: There is a 2.5 cm gallstones in gallbladder neck region. The gallbladder wall is mildly thickened at 4 mm. There is sludge within the gallbladder. PANCREAS: There is very limited visualization of the pancreas. RIGHT KIDNEY: No hydronephrosis, stone or mass. SPLEEN: No focal lesion. CONCLUSION: Prominent gallstone with mild gallbladder wall thickening. Cholecystitis could have this appearance. Lalo Ramos MD on November 06, 2017 at 9:29 Board Certified Radiologist. This report was verified electronically.
--- NOTE | 2017-11-06 10:41 | HHI.PR ---
Subjective Remarks Pt had another blood BM this morning Denies any abdominal pain Pt feels a bit more weak this morning Some dizziness Objective Vitals Vital Signs Date Time Temp Pulse Resp B/P (MAP) Pulse Ox O2 Delivery O2 Flow Rate FiO2 11/06/17 08:00 96.7 55 19 147/63 (91) 95 11/06/17 04:00 96.5 60 17 151/65 (93) 96 11/06/17 00:00 96.7 68 17 155/62 (93) 94 11/05/17 20:00 96.1 62 17 154/68 (96) 96 11/05/17 17:07 61 18 162/82 (108) 97 11/05/17 16:37 62 18 167/88 (114) 97 11/05/17 16:07 60 18 172/81 (111) 96 11/05/17 15:37 57 18 163/82 (109) 97 11/05/17 15:22 61 18 177/71 (106) 96 11/05/17 15:07 97.6 56 18 178/84 (115) 96 Result Diagram: 11/05/17 1744 11/05/17 0408 Other Results Laboratory Tests Test 11/04/17 12:35 11/05/17 04:08 11/05/17 17:44 White Blood Count 7.3 TH/MM3 5.0 TH/MM3 Red Blood Count 2.59 MIL/MM3 2.77 MIL/MM3 Hemoglobin 7.9 GM/DL 8.5 GM/DL 8.7 GM/DL Hematocrit 23.7 % 25.0 % 25.1 % Mean Corpuscular Volume 91.5 FL 90.1 FL Mean Corpuscular Hemoglobin 30.7 PG 30.6 PG Mean Corpuscular Hemoglobin Concent 33.6 % 33.9 % Red Cell Distribution Width 15.9 % 15.2 % Platelet Count 265 TH/MM3 198 TH/MM3 Mean Platelet Volume 8.5 FL 8.5 FL Neutrophils (%) (Auto) 70.1 % 57.1 % Lymphocytes (%) (Auto) 16.9 % 25.9 % Monocytes (%) (Auto) 11.9 % 14.5 % Eosinophils (%) (Auto) 0.4 % 1.6 % Basophils (%) (Auto) 0.7 % 0.9 % Neutrophils # (Auto) 5.2 TH/MM3 2.8 TH/MM3 Lymphocytes # (Auto) 1.2 TH/MM3 1.3 TH/MM3 Monocytes # (Auto) 0.9 TH/MM3 0.7 TH/MM3 Eosinophils # (Auto) 0.0 TH/MM3 0.1 TH/MM3 Basophils # (Auto) 0.0 TH/MM3 0.0 TH/MM3 CBC Comment DIFF FINAL DIFF FINAL Differential Comment Prothrombin Time 10.6 SEC Prothromb Time International Ratio 1.0 RATIO Activated Partial Thromboplast Time 24.7 SEC Blood Urea Nitrogen 30 MG/DL 29 MG/DL Creatinine 2.00 MG/DL 1.93 MG/DL Random Glucose 80 MG/DL 117 MG/DL Total Protein 6.7 GM/DL Albumin 3.3 GM/DL Calcium Level 8.3 MG/DL 8.5 MG/DL Alkaline Phosphatase 109 U/L Aspartate Amino Transf (AST/SGOT) 25 U/L Alanine Aminotransferase (ALT/SGPT) 56 U/L Total Bilirubin 0.3 MG/DL Sodium Level 140 MEQ/L 141 MEQ/L Potassium Level 4.7 MEQ/L 4.7 MEQ/L Chloride Level 110 MEQ/L 110 MEQ/L Carbon Dioxide Level 23.6 MEQ/L 26.3 MEQ/L Anion Gap 6 MEQ/L 5 MEQ/L Estimat Glomerular Filtration Rate 32 ML/MIN 33 ML/MIN Imaging Last Impressions Liver Ultrasound 11/06/17 0000 Signed Impressions: Service Date/Time: Monday, November 06, 2017 08:49 - CONCLUSION: Prominent gallstone with mild gallbladder wall thickening. Cholecystitis could have this appearance. Llao Ramos MD GI Bleed Scan Nuclear Medicine 11/05/17 0000 Signed Impressions: Service Date/Time: Sunday, November 05, 2017 11:08 - CONCLUSION: 1. Multiple episodes of active GI bleeding during the examination, most probably originating from mid to distal small bowel. Tien Barrett MD Abdominal Angiography 11/05/17 0000 Signed Impressions: Service Date/Time: Sunday, November 05, 2017 15:04 - CONCLUSION: 1. No source of active hemorrhage observed. 2. Lack of visualization of the portal vein and varicosities involving the mesentery of the small bowel. This would raise concern for portal hypertension and possible portal vein occlusion. It is possible source of hemorrhage is the varicosities. No endovascular therapy is available for these varicosities. A Doppler ultrasound of the liver is suggested to evaluate the portal vein. Tien Locke Jr., MD Objective Remarks General: NAD, AAox3 Chest: CTA Cardiac: Regular Abd: +BS, soft ND/NT Ext: No edema A/P Problem List: (1) GI bleed ICD Codes: K92.2 - Gastrointestinal hemorrhage, unspecified Status: Acute Plan: Anemia, acute GIB/hematochezia - Pt is an 87 y/o WM with hx of carcinoid tumor, follows with Dr. Chadwick and is on monthly Octreotide injections, hx of achalasia/dysphagia and had an EGD with Botox injections in September 2016, HTN, and CKD stage 3. - Pt was recently hospitalized at [facility] for about 8 days with GIB. Pts Hgb was around 8-9 initially. He was seen by GI and had an EGD and a colonoscopy which did not reveal any active bleeding per the discharge summary report. He also had two Nuclear Med GIB scans which were reportedly negative. His Hgb went down to 7 and he received one unit of PRBCs at . Pts H/H reportedly stabilized and the pt was discharged to home 2 days ago. - On the morning of admission he had a loose stool and was noted to have bright red blood. He had some mild cramping associated with the BM. - His labs in the ED noted Hgb 7.9/Hct 23.7. He did have some mild dizziness today after walking to the bathroom. - Pt was transfused with 2 units PRBCs on 11/04 - GI following - GIB Scan (11/05) --> Multiple episodes of active GI bleeding during the examination, most probably originating from mid to distal small bowel. - Pt then taken for Angiogram (11/05) --> No source of active hemorrhage observed. Lack of visualization of the portal vein and varicosities involving the mesentery of the small bowel. This would raise concern for portal hypertension and possible portal vein occlusion. It is possible source of hemorrhage is the varicosities. No endovascular therapy is available for these varicosities. - Doppler ultrasound of the liver was ordered (11/06) --> Prominent gallstone with mild gallbladder wall thickening. Cholecystitis could have this appearance. There is no mention of the Doppler findings in the report - Monitor for active GIB and orders written for nurse to call GI immediately if any active bleeding noted to see if IR consultation/embolization is warranted - Pt had another bloody BM today. - Awaiting repeat labs this morning, pt may need another transfusion - Recheck labs in AM - Pt may need outpt Capsule endoscopy vs. double balloon enteroscopy at a tertiary center - Supportive care - No chemical DVT prophylaxis due to bleeding HTN - Home meds continued, hold parameters CKD, stage 3 - Labs are slightly worse than baseline at admission, likely secondary to GIB - Repeat labs on 11/05 improving with Cr 1.93. Hyperthyroidism - Home meds continued Hx of Carcinoid tumor - Pt follows with Dr. Chadwick - He receives monthly Octreotide injections (2) Anemia ICD Codes: D64.9 - Anemia, unspecified (3) HTN (hypertension) ICD Codes: I10 - Essential (primary) hypertension (4) Hyperthyroidism ICD Codes: E05.90 - Thyrotoxicosis, unspecified without thyrotoxic crisis or storm (5) Hx of benign carcinoid tumor ICD Codes: Z86.012 - Personal history of benign carcinoid tumor (6) CKD (chronic kidney disease) stage 3, GFR 30-59 ml/min ICD Codes: N18.3 - Chronic kidney disease, stage 3 (moderate) Assessment and Plan Patient examined. Assessment and plan formulated with Carol Hathaway PA-C. I agree with the above. pt had positive bleeding scan of small bowel but radiology unable to see anything to embolize during angio. more bleeding this AM and nursing says he became briefly confused and hypotensive with abdomen cramping. will go ahead and give him 2 more units blood. await gi reccs...pt asked about [facility] and also discussed pill endoscopy. Carol Hathaway Nov 06, 2017 10:41 Bubba Stark MD Nov 06, 2017 13:06
[2017-11-06 11:04] LABS: HEMATOCRIT 24.5 % (39.0-51.0); HEMOGLOBIN 8.4 GM/DL (13.0-17.0)
[2017-11-06] MEDS ORDERED: traMADol HCL 50 MG TAB PO PRN (11:45)
--- NOTE | 2017-11-06 14:26 | HHI.GIFU ---
Subjective Remarks Resting in the bed Family present Mild anxiety over current condition Mild dizziness when up (Shahnaz Kang) Objective Vitals I&O Vital Signs Date Time Temp Pulse Resp B/P (MAP) Pulse Ox O2 Delivery O2 Flow Rate FiO2 11/06/17 13:51 96.0 55 18 131/58 97 11/06/17 13:34 96.0 57 17 129/60 97 11/06/17 12:00 95.5 85 18 126/65 (85) 96 11/06/17 11:27 95.9 70 20 96/48 (64) 99 136/96 (109) 11/06/17 08:00 96.7 55 19 147/63 (91) 95 11/06/17 04:00 96.5 60 17 151/65 (93) 96 11/06/17 00:00 96.7 68 17 155/62 (93) 94 11/05/17 20:00 96.1 62 17 154/68 (96) 96 11/05/17 17:07 61 18 162/82 (108) 97 11/05/17 16:37 62 18 167/88 (114) 97 11/05/17 16:07 60 18 172/81 (111) 96 11/05/17 15:37 57 18 163/82 (109) 97 11/05/17 15:22 61 18 177/71 (106) 96 11/05/17 15:07 97.6 56 18 178/84 (115) 96 I/O 11/05/17 11/05/17 11/05/17 11/06/17 11/06/17 11/06/17 07:00 15:00 23:00 07:00 15:00 23:00 Intake Total 1040 ml 0 ml 240 ml Output Total 1000 ml 700 ml Balance 40 ml -700 ml 240 ml Intake Oral 240 ml 0 ml 240 ml Packed Cells 800 ml Output Urine Total 1000 ml 700 ml # Voids 2 3 # Bowel Movements 1 1 1 Laboratory Laboratory Tests Test 11/05/17 17:44 11/06/17 09:47 Hemoglobin 8.7 8.4 Hematocrit 25.1 24.5 Imaging Last Impressions Liver Ultrasound 11/06/17 0000 Signed Impressions: Service Date/Time: Monday, November 06, 2017 08:49 - CONCLUSION: Prominent gallstone with mild gallbladder wall thickening. Cholecystitis could have this appearance. Lalo Ramos MD GI Bleed Scan Nuclear Medicine 11/05/17 0000 Signed Impressions: Service Date/Time: Sunday, November 05, 2017 11:08 - CONCLUSION: 1. Multiple episodes of active GI bleeding during the examination, most probably originating from mid to distal small bowel. Tien Barrett MD Abdominal Angiography 11/05/17 0000 Signed Impressions: Service Date/Time: Sunday, November 05, 2017 15:04 - CONCLUSION: 1. No source of active hemorrhage observed. 2. Lack of visualization of the portal vein and varicosities involving the mesentery of the small bowel. This would raise concern for portal hypertension and possible portal vein occlusion. It is possible source of hemorrhage is the varicosities. No endovascular therapy is available for these varicosities. A Doppler ultrasound of the liver is suggested to evaluate the portal vein. Tien Locke Jr., MD Physical Exam HEENT: Normocephalic; atraumatic, obese, oral cavity moist CHEST: Even, unlabored, no obvious rhonchi CARDIAC: RRR, distant ABDOMEN: Round, Soft, mild distention, nontender; bowel sounds active EXTREMITIES: No clubbing, cyanosis, or edema., Obese SKIN: Pale, Normal; no rash; no jaundice. POULTRY EVISCERATOR: No focal deficits; alert and oriented times three., Mild anxiety (Shahnaz Kang) Assessment and Plan Plan GI bleed, bloody loose stool noted this a.m. on 11/04/17 at approximately 0930. No further diarrhea or bloody stools noted. EGD performed on September 2017, EGD and colonoscopy in October 2017. Patient is currently on monthly octreotide injections, and did receive Botox injection on September 2017. Abdominal angiography done per IR on 11/05/17. Anemia symptomatic, hemoglobin 7.9, received 2 units of packed RBCs Positive bleeding scan 11/05/17 mid to distal small bowel region Current hemoglobin 8.4 Abdominal pain, mild generalized cramping right upper and mid quadrant Liver ultrasound showed possible cholecystitis Plan: Monitor labs with special attention to H&H Transfuse as needed Continue Protonix Further recommendations based on clinical course Patient has been seen and examined by myself and Dr. Cobos note is written on his behalf (Shahnaz Kang) Plan patient was seen and examined, patient has no active bleed, HGB stable,bleeding scan was positive but angio was negative, if start bleeding we would consider enteroscopy, and capsule endoscopy as outpatient (Susanne Cobos MD) Shahnaz Kang Nov 06, 2017 14:26 Susanne Cobos MD Nov 06, 2017 18:55
[2017-11-06] MEDS: TAMSULOSIN HCL 0.4 MG CAP PO SCH (20:58)
[2017-11-07] VITALS: BP 137/65; PULSE 62; RESP 18; TEMP 96.8; O2SAT 95
[2017-11-07 06:02] LABS: AUTOMATED NEUTROPHIL # 4.3 TH/MM3 (1.8-7.7); BASOPHIL % 0.6 % (0.0-2.0); EOSINOPHIL # 0.1 TH/MM3 (0-0.4); EOSINOPHIL % 1.8 % (0.0-4.0); HEMATOCRIT 26.7 % (39.0-51.0); HEMOGLOBIN 9.4 GM/DL (13.0-17.0); LYMPH % 19.3 % (9.0-44.0); LYMPHOCYTE # 1.3 TH/MM3 (1.0-4.8); MEAN CELL VOLUME 88.2 FL (80.0-100.0); MEAN CORPUSCULAR HEMOGLOBIN 31.1 PG (27.0-34.0); MEAN CORPUSCULAR HGB CONC 35.2 % (32.0-36.0); MEAN PLATELET VOLUME 8.5 FL (7.0-11.0); MONO % 13.1 % (0.0-8.0); MONOCYTE # 0.9 TH/MM3 (0-0.9); NEUT % 65.2 % (16.0-70.0); PLATELET COUNT 198 TH/MM3 (150-450); RED BLOOD COUNT 3.02 MIL/MM3 (4.50-5.90); RED CELL DISTRIBUTION WIDTH 15.5 % (11.6-17.2); WHITE BLOOD COUNT 6.5 TH/MM3 (4.0-11.0)
[2017-11-07 06:27] LABS: BICARBONATE 26.3 MEQ/L (21.0-32.0); CALCIUM 8.4 MG/DL (8.5-10.1); CREATININE 2.07 MG/DL (0.60-1.30); MAGNESIUM 2.1 MG/DL (1.5-2.5)
[2017-11-07 08:00] VITALS: BP 187/79; PULSE 56; RESP 17; TEMP 96; O2SAT 98
[2017-11-07] MEDS: METHIMAZOLE 5 MG TAB PO SCH (08:25)
[2017-11-07] MEDS: LISINOPRIL 20 MG TAB PO SCH ×2 (08:25→20:22)
[2017-11-07] MEDS: PANTOPRAZOLE SOD 40 MG DELAYED RELEASE TAB PO SCH (08:26)
[2017-11-07] MEDS: hydrALAZINE HCL 25 MG TAB PO SCH ×2 (08:26→20:22)
[2017-11-07] MEDS: FERROUS SULFATE 325 MG (65 MG ELEMENTAL IRON) TAB PO SCH (08:26)
--- NOTE | 2017-11-07 08:53 | HHI.PR ---
Subjective Remarks Pt reports that he had a small BM last night with some "spots of blood" noted in the commode He had an episode yesterday of increased abdominal pain and his BP decreased and nurse reports that he became confused and unable to follow directions. This episode lasted about 1 minute and then the pt returned to his baseline. Pt received two units of PRBCs on 11/06 but Hgb only increased by 1 gm. Objective Vitals Vital Signs Date Time Temp Pulse Resp B/P (MAP) Pulse Ox O2 Delivery O2 Flow Rate FiO2 11/07/17 08:00 96.0 56 17 187/79 (115) 98 11/07/17 00:00 96.8 62 18 137/65 (89) 95 11/06/17 20:00 96.8 63 18 136/66 (89) 95 11/06/17 17:14 96.2 59 17 126/59 96 11/06/17 16:55 96.4 60 18 129/69 96 11/06/17 16:46 96.4 60 18 129/69 96 11/06/17 16:00 96.7 62 18 145/63 (90) 94 11/06/17 13:51 96.0 55 18 131/58 97 11/06/17 13:34 96.0 57 17 129/60 97 11/06/17 12:00 95.5 85 18 126/65 (85) 96 11/06/17 11:27 95.9 70 20 96/48 (64) 99 136/96 (109) Result Diagram: 11/07/17 0526 11/07/17 0526 Other Results Laboratory Tests Test 11/05/17 17:44 11/06/17 09:47 11/07/17 05:26 Hemoglobin 8.7 GM/DL 8.4 GM/DL 9.4 GM/DL Hematocrit 25.1 % 24.5 % 26.7 % White Blood Count 6.5 TH/MM3 Red Blood Count 3.02 MIL/MM3 Mean Corpuscular Volume 88.2 FL Mean Corpuscular Hemoglobin 31.1 PG Mean Corpuscular Hemoglobin Concent 35.2 % Red Cell Distribution Width 15.5 % Platelet Count 198 TH/MM3 Mean Platelet Volume 8.5 FL Neutrophils (%) (Auto) 65.2 % Lymphocytes (%) (Auto) 19.3 % Monocytes (%) (Auto) 13.1 % Eosinophils (%) (Auto) 1.8 % Basophils (%) (Auto) 0.6 % Neutrophils # (Auto) 4.3 TH/MM3 Lymphocytes # (Auto) 1.3 TH/MM3 Monocytes # (Auto) 0.9 TH/MM3 Eosinophils # (Auto) 0.1 TH/MM3 Basophils # (Auto) 0.0 TH/MM3 CBC Comment DIFF FINAL Differential Comment Blood Urea Nitrogen 33 MG/DL Creatinine 2.07 MG/DL Random Glucose 118 MG/DL Calcium Level 8.4 MG/DL Magnesium Level 2.1 MG/DL Sodium Level 140 MEQ/L Potassium Level 4.3 MEQ/L Chloride Level 108 MEQ/L Carbon Dioxide Level 26.3 MEQ/L Anion Gap 6 MEQ/L Estimat Glomerular Filtration Rate 31 ML/MIN Imaging Last Impressions Liver Ultrasound 11/06/17 0000 Signed Impressions: Service Date/Time: Monday, November 06, 2017 08:49 - CONCLUSION: Prominent gallstone with mild gallbladder wall thickening. Cholecystitis could have this appearance. Lalo Ramos MD GI Bleed Scan Nuclear Medicine 11/05/17 0000 Signed Impressions: Service Date/Time: Sunday, November 05, 2017 11:08 - CONCLUSION: 1. Multiple episodes of active GI bleeding during the examination, most probably originating from mid to distal small bowel. Tien Barrett MD Abdominal Angiography 11/05/17 0000 Signed Impressions: Service Date/Time: Sunday, November 05, 2017 15:04 - CONCLUSION: 1. No source of active hemorrhage observed. 2. Lack of visualization of the portal vein and varicosities involving the mesentery of the small bowel. This would raise concern for portal hypertension and possible portal vein occlusion. It is possible source of hemorrhage is the varicosities. No endovascular therapy is available for these varicosities. A Doppler ultrasound of the liver is suggested to evaluate the portal vein. Tien Locke Jr., MD Objective Remarks General: NAD, AAox3 Chest: CTA Cardiac: Regular Abd: +BS, soft ND/NT Ext: No edema A/P Problem List: (1) GI bleed ICD Codes: K92.2 - Gastrointestinal hemorrhage, unspecified Status: Acute Plan: Anemia, acute GIB/hematochezia - Pt is an 87 y/o WM with hx of carcinoid tumor, follows with Dr. Chadwick and is on monthly Octreotide injections, hx of achalasia/dysphagia and had an EGD with Botox injections in September 2016, HTN, and CKD stage 3. - Pt was recently hospitalized at [facility] for about 8 days with GIB. Pts Hgb was around 8-9 initially. He was seen by GI and had an EGD and a colonoscopy which did not reveal any active bleeding per the discharge summary report. He also had two Nuclear Med GIB scans which were reportedly negative. His Hgb went down to 7 and he received one unit of PRBCs at . Pts H/H reportedly stabilized and the pt was discharged to home 2 days ago. - On the morning of admission he had a loose stool and was noted to have bright red blood. He had some mild cramping associated with the BM. - His labs in the ED noted Hgb 7.9/Hct 23.7. He did have some mild dizziness today after walking to the bathroom. - Pt was transfused with 2 units PRBCs on 11/04 - GI following - GIB Scan (11/05) --> Multiple episodes of active GI bleeding during the examination, most probably originating from mid to distal small bowel. - Pt then taken for Angiogram (11/05) --> No source of active hemorrhage observed. Lack of visualization of the portal vein and varicosities involving the mesentery of the small bowel. This would raise concern for portal hypertension and possible portal vein occlusion. It is possible source of hemorrhage is the varicosities. No endovascular therapy is available for these varicosities. - Doppler ultrasound of the liver was ordered (11/06) --> Prominent gallstone with mild gallbladder wall thickening. Cholecystitis could have this appearance. There is no mention of the Doppler findings in the report - Monitor for active GIB and orders written for nurse to call GI immediately if any active bleeding noted to see if IR consultation/embolization is warranted - Pt received 2 units PRBCs on 11/06 - Hgb increased from 8.4--> 9.4 on 11/07 - Recheck labs in AM - GI considering enteroscopy if pt has any repeat bleeding. - Pt may need outpt Capsule endoscopy vs. double balloon enteroscopy at a tertiary center - Supportive care - No chemical DVT prophylaxis due to bleeding HTN - Home meds continued, hold parameters CKD, stage 3 - Labs are slightly worse than baseline at admission, likely secondary to GIB - Repeat labs on 11/07 with Cr 2.07 - Repeat labs in AM Hyperthyroidism - Home meds continued Hx of Carcinoid tumor - Pt follows with Dr. Chadwick - He receives monthly Octreotide injections (2) Anemia ICD Codes: D64.9 - Anemia, unspecified (3) HTN (hypertension) ICD Codes: I10 - Essential (primary) hypertension (4) Hyperthyroidism ICD Codes: E05.90 - Thyrotoxicosis, unspecified without thyrotoxic crisis or storm (5) Hx of benign carcinoid tumor ICD Codes: Z86.012 - Personal history of benign carcinoid tumor (6) CKD (chronic kidney disease) stage 3, GFR 30-59 ml/min ICD Codes: N18.3 - Chronic kidney disease, stage 3 (moderate) Assessment and Plan Patient examined. Assessment and plan formulated with Carol Hathaway PA-C. I agree with the above. pt had positive bleeding scan of small bowel but radiology unable to see anything to embolize during angio. going for enteroscopy in AM s/p 2 units blood. no bleeding last night or today so far Carol Hathaway Nov 07, 2017 08:53 Bubba Stark MD Nov 07, 2017 15:43
[2017-11-07 12:00] VITALS: BP 187/74; PULSE 62; RESP 17; TEMP 95.3; O2SAT 97
--- NOTE | 2017-11-07 14:09 | HHI.GIFU ---
Subjective Remarks Resting in the bed Family visiting Patient had large semi-formed BM, dark tarry early afternoon Mid umbilicus abdominal cramping until after BM (Shahnaz Kang) Objective Vitals I&O Vital Signs Date Time Temp Pulse Resp B/P (MAP) Pulse Ox O2 Delivery O2 Flow Rate FiO2 11/07/17 12:00 95.3 62 17 187/74 (111) 97 11/07/17 08:00 96.0 56 17 187/79 (115) 98 11/07/17 00:00 96.8 62 18 137/65 (89) 95 11/06/17 20:00 96.8 63 18 136/66 (89) 95 11/06/17 17:14 96.2 59 17 126/59 96 11/06/17 16:55 96.4 60 18 129/69 96 11/06/17 16:46 96.4 60 18 129/69 96 11/06/17 16:00 96.7 62 18 145/63 (90) 94 I/O 11/06/17 11/06/17 11/06/17 11/07/17 11/07/17 11/07/17 07:00 15:00 23:00 07:00 15:00 23:00 Intake Total 240 ml 2123 ml Output Total 700 ml Balance 240 ml 2123 ml -700 ml Intake Oral 240 ml 960 ml Packed Cells 701 ml Blood Product IV Normal Saline Flush 462 ml Output Urine Total 700 ml # Voids 3 3 # Bowel Movements 1 1 Laboratory Laboratory Tests Test 11/07/17 05:26 White Blood Count 6.5 Red Blood Count 3.02 Hemoglobin 9.4 Hematocrit 26.7 Mean Corpuscular Volume 88.2 Mean Corpuscular Hemoglobin 31.1 Mean Corpuscular Hemoglobin Concent 35.2 Red Cell Distribution Width 15.5 Platelet Count 198 Mean Platelet Volume 8.5 Neutrophils (%) (Auto) 65.2 Lymphocytes (%) (Auto) 19.3 Monocytes (%) (Auto) 13.1 Eosinophils (%) (Auto) 1.8 Basophils (%) (Auto) 0.6 Neutrophils # (Auto) 4.3 Lymphocytes # (Auto) 1.3 Monocytes # (Auto) 0.9 Eosinophils # (Auto) 0.1 Basophils # (Auto) 0.0 CBC Comment DIFF FINAL Differential Comment Blood Urea Nitrogen 33 Creatinine 2.07 Random Glucose 118 Calcium Level 8.4 Magnesium Level 2.1 Sodium Level 140 Potassium Level 4.3 Chloride Level 108 Carbon Dioxide Level 26.3 Anion Gap 6 Estimat Glomerular Filtration Rate 31 Imaging Last Impressions Liver Ultrasound 11/06/17 0000 Signed Impressions: Service Date/Time: Monday, November 06, 2017 08:49 - CONCLUSION: Prominent gallstone with mild gallbladder wall thickening. Cholecystitis could have this appearance. Lalo Ramos MD GI Bleed Scan Nuclear Medicine 11/05/17 0000 Signed Impressions: Service Date/Time: Sunday, November 05, 2017 11:08 - CONCLUSION: 1. Multiple episodes of active GI bleeding during the examination, most probably originating from mid to distal small bowel. Tien Barrett MD Abdominal Angiography 11/05/17 0000 Signed Impressions: Service Date/Time: Sunday, November 05, 2017 15:04 - CONCLUSION: 1. No source of active hemorrhage observed. 2. Lack of visualization of the portal vein and varicosities involving the mesentery of the small bowel. This would raise concern for portal hypertension and possible portal vein occlusion. It is possible source of hemorrhage is the varicosities. No endovascular therapy is available for these varicosities. A Doppler ultrasound of the liver is suggested to evaluate the portal vein. Tien Locke Jr., MD Physical Exam HEENT: Normocephalic; atraumatic, obese, oral cavity moist CHEST: Even, unlabored, no obvious rhonchi, shortness of breath CARDIAC: RRR, distant ABDOMEN: Round, Soft, mild distention, mid umbilicus abdominal tenderness today right before bowel movement; bowel sounds active EXTREMITIES: No clubbing, cyanosis, or edema., Obese SKIN: Pale, Normal; no rash; no jaundice. RHEUMATOLOGIST: No focal deficits; alert and oriented times three., Mild anxiety (Shahnaz Kang) Assessment and Plan Plan GI bleed, bloody loose stool noted this a.m. on 11/04/17 at approximately 0930. No further diarrhea or bloody stools noted. EGD performed on September 2017, EGD and colonoscopy in October 2017. Patient is currently on monthly octreotide injections, and did receive Botox injection on September 2017. Abdominal angiography done per IR on 11/05/17. Anemia symptomatic, open currently at 9.4 Positive bleeding scan 11/05/17 mid to distal small bowel region Abdominal pain, generalized mid abdominal cramping right before bowel movements. Noted large semi formed BM today dark tarry, melena. After stool abdominal pain ceases Liver ultrasound showed possible cholecystitis Plan: Intake and output, monitor stools for melena Recheck hemoglobin in the morning Transfuse as needed Protonix Continue ferrous sulfate Zofran as needed Further recommendations pending for now, we'll consider enteroscopy capsule endoscopy. Patient has been seen and examined by myself and Dr. Cobos note is written on his behalf (Shahnaz Kang) Plan Patient was seen and examined, agree with above-noted, seems that he has, I'm going to do an enteroscopy tomorrow to see if we can see if there is any active bleeding or any lesion, that's not possible then patient may need double balloon enteroscopy and capsule endoscopy as an outpatient (Susanne Cobos MD) Shahnaz Kang Nov 07, 2017 14:09 Susanne Cobos MD Nov 07, 2017 17:22
[2017-11-07] MEDS ORDERED: cloNIDine HCL 0.1 MG TAB PO PRN (15:45)
[2017-11-07 16:00] VITALS: BP 175/79; PULSE 62; RESP 17; TEMP 96.5; O2SAT 98
[2017-11-07 20:00] VITALS: BP 143/68; PULSE 53; RESP 16; TEMP 96.4; O2SAT 98
[2017-11-07] MEDS: TAMSULOSIN HCL 0.4 MG CAP PO SCH (20:22)
[2017-11-07] MEDS ORDERED: LACTATED RINGER'S 1000 ML IV PRN (23:45)
[2017-11-08] VITALS: BP 138/65; PULSE 56; RESP 16; TEMP 96.5; O2SAT 98
[2017-11-08 08:00] VITALS: BP 138/65; PULSE 55; RESP 17; TEMP 95.9; O2SAT 95
[2017-11-08 08:57] LABS: AUTOMATED NEUTROPHIL # 3.7 TH/MM3 (1.8-7.7); BASOPHIL # 0.1 TH/MM3 (0-0.2); BASOPHIL % 0.9 % (0.0-2.0); EOSINOPHIL # 0.1 TH/MM3 (0-0.4); EOSINOPHIL % 2.6 % (0.0-4.0); HEMATOCRIT 27.6 % (39.0-51.0); HEMOGLOBIN 9.5 GM/DL (13.0-17.0); MEAN CELL VOLUME 90.2 FL (80.0-100.0); MEAN CORPUSCULAR HEMOGLOBIN 31.1 PG (27.0-34.0); MEAN CORPUSCULAR HGB CONC 34.4 % (32.0-36.0); MEAN PLATELET VOLUME 8.4 FL (7.0-11.0); MONO % 11.9 % (0.0-8.0); MONOCYTE # 0.7 TH/MM3 (0-0.9); NEUT % 66.6 % (16.0-70.0); PLATELET COUNT 225 TH/MM3 (150-450); RED BLOOD COUNT 3.06 MIL/MM3 (4.50-5.90); RED CELL DISTRIBUTION WIDTH 16.1 % (11.6-17.2); WHITE BLOOD COUNT 5.6 TH/MM3 (4.0-11.0)
[2017-11-08 09:21] LABS: BICARBONATE 28.5 MEQ/L (21.0-32.0); CALCIUM 8.7 MG/DL (8.5-10.1); CREATININE 2.19 MG/DL (0.60-1.30); MAGNESIUM 2.1 MG/DL (1.5-2.5)
--- NOTE | 2017-11-08 09:24 | HHI.PR ---
Subjective Remarks Pt reports that he had three BMs yesterday afternoon, they were soft and dark and there was noted red blood per the pt Pt is going for evaluation with enteroscopy this morning. Objective Vitals Vital Signs Date Time Temp Pulse Resp B/P (MAP) Pulse Ox O2 Delivery O2 Flow Rate FiO2 11/08/17 08:00 95.9 55 17 138/65 (89) 95 11/08/17 00:00 96.5 56 16 138/65 (89) 98 11/07/17 20:00 96.4 53 16 143/68 (93) 98 11/07/17 16:00 96.5 62 17 175/79 (111) 98 11/07/17 12:00 95.3 62 17 187/74 (111) 97 Result Diagram: 11/08/17 0811/08/17 08 Other Results Laboratory Tests Test 11/06/17 09:47 11/07/17 05:26 11/08/17 08:17 Hemoglobin 8.4 GM/DL 9.4 GM/DL 9.5 GM/DL Hematocrit 24.5 % 26.7 % 27.6 % White Blood Count 6.5 TH/MM3 5.6 TH/MM3 Red Blood Count 3.02 MIL/MM3 3.06 MIL/MM3 Mean Corpuscular Volume 88.2 FL 90.2 FL Mean Corpuscular Hemoglobin 31.1 PG 31.1 PG Mean Corpuscular Hemoglobin Concent 35.2 % 34.4 % Red Cell Distribution Width 15.5 % 16.1 % Platelet Count 198 TH/MM3 225 TH/MM3 Mean Platelet Volume 8.5 FL 8.4 FL Neutrophils (%) (Auto) 65.2 % 66.6 % Lymphocytes (%) (Auto) 19.3 % 18.0 % Monocytes (%) (Auto) 13.1 % 11.9 % Eosinophils (%) (Auto) 1.8 % 2.6 % Basophils (%) (Auto) 0.6 % 0.9 % Neutrophils # (Auto) 4.3 TH/MM3 3.7 TH/MM3 Lymphocytes # (Auto) 1.3 TH/MM3 1.0 TH/MM3 Monocytes # (Auto) 0.9 TH/MM3 0.7 TH/MM3 Eosinophils # (Auto) 0.1 TH/MM3 0.1 TH/MM3 Basophils # (Auto) 0.0 TH/MM3 0.1 TH/MM3 CBC Comment DIFF FINAL DIFF FINAL Differential Comment Blood Urea Nitrogen 33 MG/DL 33 MG/DL Creatinine 2.07 MG/DL 2.19 MG/DL Random Glucose 118 MG/DL 121 MG/DL Calcium Level 8.4 MG/DL 8.7 MG/DL Magnesium Level 2.1 MG/DL 2.1 MG/DL Sodium Level 140 MEQ/L 139 MEQ/L Potassium Level 4.3 MEQ/L 4.0 MEQ/L Chloride Level 108 MEQ/L 106 MEQ/L Carbon Dioxide Level 26.3 MEQ/L 28.5 MEQ/L Anion Gap 6 MEQ/L 5 MEQ/L Estimat Glomerular Filtration Rate 31 ML/MIN 29 ML/MIN Imaging Last Impressions Liver Ultrasound 11/06/17 0000 Signed Impressions: Service Date/Time: Monday, November 06, 2017 08:49 - CONCLUSION: Prominent gallstone with mild gallbladder wall thickening. Cholecystitis could have this appearance. Lalo Ramos MD GI Bleed Scan Nuclear Medicine 11/05/17 0000 Signed Impressions: Service Date/Time: Sunday, November 05, 2017 11:08 - CONCLUSION: 1. Multiple episodes of active GI bleeding during the examination, most probably originating from mid to distal small bowel. Tien Barrett MD Abdominal Angiography 11/05/17 0000 Signed Impressions: Service Date/Time: Sunday, November 05, 2017 15:04 - CONCLUSION: 1. No source of active hemorrhage observed. 2. Lack of visualization of the portal vein and varicosities involving the mesentery of the small bowel. This would raise concern for portal hypertension and possible portal vein occlusion. It is possible source of hemorrhage is the varicosities. No endovascular therapy is available for these varicosities. A Doppler ultrasound of the liver is suggested to evaluate the portal vein. Tien Locke Jr., MD Objective Remarks General: NAD, AAox3 Chest: CTA Cardiac: Regular Abd: +BS, soft ND/NT Ext: No edema A/P Problem List: (1) GI bleed ICD Codes: K92.2 - Gastrointestinal hemorrhage, unspecified Status: Acute Plan: Anemia, acute GIB/hematochezia - Pt is an 87 y/o WM with hx of carcinoid tumor, follows with Dr. Chadwick and is on monthly Octreotide injections, hx of achalasia/dysphagia and had an EGD with Botox injections in September 2016, HTN, and CKD stage 3. - Pt was recently hospitalized at [facility] for about 8 days with GIB. Pts Hgb was around 8-9 initially. He was seen by GI and had an EGD and a colonoscopy which did not reveal any active bleeding per the discharge summary report. He also had two Nuclear Med GIB scans which were reportedly negative. His Hgb went down to 7 and he received one unit of PRBCs at . Pts H/H reportedly stabilized and the pt was discharged to home 2 days ago. - On the morning of admission he had a loose stool and was noted to have bright red blood. He had some mild cramping associated with the BM. - His labs in the ED noted Hgb 7.9/Hct 23.7. He did have some mild dizziness today after walking to the bathroom. - Pt was transfused with 2 units PRBCs on 11/04 - GI following - GIB Scan (11/05) --> Multiple episodes of active GI bleeding during the examination, most probably originating from mid to distal small bowel. - Pt then taken for Angiogram (11/05) --> No source of active hemorrhage observed. Lack of visualization of the portal vein and varicosities involving the mesentery of the small bowel. This would raise concern for portal hypertension and possible portal vein occlusion. It is possible source of hemorrhage is the varicosities. No endovascular therapy is available for these varicosities. - Doppler ultrasound of the liver was ordered (11/06) --> Prominent gallstone with mild gallbladder wall thickening. Cholecystitis could have this appearance. There is no mention of the Doppler findings in the report - Monitor for active GIB and orders written for nurse to call GI immediately if any active bleeding noted to see if IR consultation/embolization is warranted - Pt received 2 units PRBCs on 11/06 - Hgb increased from 8.4--> 9.4 on 11/07 - Recheck labs this morning with Hgb 9.5 - Pt to undergo evaluation with enteroscopy today. - Pt may need outpt Capsule endoscopy vs. double balloon enteroscopy at a tertiary center - Supportive care - No chemical DVT prophylaxis due to bleeding HTN - Home meds continued, hold parameters CKD, stage 3 - Labs are slightly worse than baseline at admission, likely secondary to GIB - Repeat labs on 11/07 with Cr 2.07 - Repeat labs are pending. Hyperthyroidism - Home meds continued Hx of Carcinoid tumor - Pt follows with Dr. Chadwick - He receives monthly Octreotide injections (2) Anemia ICD Codes: D64.9 - Anemia, unspecified (3) HTN (hypertension) ICD Codes: I10 - Essential (primary) hypertension (4) Hyperthyroidism ICD Codes: E05.90 - Thyrotoxicosis, unspecified without thyrotoxic crisis or storm (5) Hx of benign carcinoid tumor ICD Codes: Z86.012 - Personal history of benign carcinoid tumor (6) CKD (chronic kidney disease) stage 3, GFR 30-59 ml/min ICD Codes: N18.3 - Chronic kidney disease, stage 3 (moderate) Carol Hathaway Nov 08, 2017 09:24
--- NOTE | 2017-11-08 11:54 | PD.PROCEDR ---
GI Procedure PROCEDURE PERFORMED Enteroscopy INDICATION FOR PROCEDURE GI bleed, anemia PROCEDURE: The procedure, risks and benefits were discussed with Mr. Ryan and informed consent was obtained. Anesthesia sedated him with Diprivan. He was placed in the left lateral decubitus position. Enteroscopy: The Pentax videoscope was introduced through the oropharynx and advanced to the second portion of the distal jejunum under direct visualization. Retroflexion was performed in the stomach. FINDINGS: No abnormality was seen to explain the patient's anemia, most likely the bleeding coming from distal to the area that was examined Patient has residual food in the stomach and the small bowel ESTIMATED BLOOD LOSS: None SPECIMENS REMOVED: None COMPLICATIONS: None IMPRESSION: No source of bleeding was identified on this procedure most likely the bleeding distal to the duodenum and the jejunum Some food residual in the stomach PLAN: Diet as tolerated Monitor hemoglobin closely Capsule endoscopy as an outpatient If hemoglobin stable patient may be discharged from GI standpoint with close follow-up with Susanne Erwin MD Nov 08, 2017 11:54
--- NOTE | 2017-11-08 11:55 | HHI.GIFU ---
Subjective Remarks Patient laying in bed comfortably, no sign of active bleeding, hemoglobin stable so far, patient undergone enteroscopy today Objective Vitals I&O Vital Signs Date Time Temp Pulse Resp B/P (MAP) Pulse Ox O2 Delivery O2 Flow Rate FiO2 11/08/17 11:41 97.2 64 18 135/82 (99) 95 Room Air 11/08/17 08:00 95.9 55 17 138/65 (89) 95 11/08/17 00:00 96.5 56 16 138/65 (89) 98 11/07/17 20:00 96.4 53 16 143/68 (93) 98 11/07/17 16:00 96.5 62 17 175/79 (111) 98 11/07/17 12:00 95.3 62 17 187/74 (111) 97 I/O 11/07/17 11/07/17 11/07/17 11/08/17 11/08/17 11/08/17 07:00 15:00 23:00 07:00 15:00 23:00 Intake Total 700 ml 200 ml Output Total 700 ml 700 ml Balance -700 ml 0 ml 200 ml Intake Oral 700 ml Other 200 ml Output Urine Total 700 ml 700 ml # Voids 0 # Bowel Movements 2 Laboratory Laboratory Tests Test 11/08/17 08:17 White Blood Count 5.6 Red Blood Count 3.06 Hemoglobin 9.5 Hematocrit 27.6 Mean Corpuscular Volume 90.2 Mean Corpuscular Hemoglobin 31.1 Mean Corpuscular Hemoglobin Concent 34.4 Red Cell Distribution Width 16.1 Platelet Count 225 Mean Platelet Volume 8.4 Neutrophils (%) (Auto) 66.6 Lymphocytes (%) (Auto) 18.0 Monocytes (%) (Auto) 11.9 Eosinophils (%) (Auto) 2.6 Basophils (%) (Auto) 0.9 Neutrophils # (Auto) 3.7 Lymphocytes # (Auto) 1.0 Monocytes # (Auto) 0.7 Eosinophils # (Auto) 0.1 Basophils # (Auto) 0.1 CBC Comment DIFF FINAL Differential Comment Blood Urea Nitrogen 33 Creatinine 2.19 Random Glucose 121 Calcium Level 8.7 Magnesium Level 2.1 Sodium Level 139 Potassium Level 4.0 Chloride Level 106 Carbon Dioxide Level 28.5 Anion Gap 5 Estimat Glomerular Filtration Rate 29 Physical Exam HEENT: Normocephalic; atraumatic, obese, oral cavity moist CHEST: Even, unlabored, no obvious rhonchi, shortness of breath CARDIAC: RRR, distant ABDOMEN: Round, Soft, mild distention, mid umbilicus abdominal tenderness today right before bowel movement; bowel sounds active EXTREMITIES: No clubbing, cyanosis, or edema., Obese SKIN: Pale, Normal; no rash; no jaundice. 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
[2017-11-08] MEDS ORDERED: PROPOFOL 200 MG/20 ML AMP IV ONE (12:00)
[2017-11-08] MEDS ORDERED: LIDOCAINE HCL 1% PF 5 ML SYRINGE OTHER ONE (12:00)
[2017-11-08] MEDS ORDERED: PHENYLEPH/NS 1000 MCG/10 ML SYR IV ONE (12:00)
[2017-11-08] MEDS: LISINOPRIL 20 MG TAB PO SCH (12:06)
[2017-11-08] MEDS: PANTOPRAZOLE SOD 40 MG DELAYED RELEASE TAB PO SCH (12:06)
[2017-11-08] MEDS: hydrALAZINE HCL 25 MG TAB PO SCH (12:07)
[2017-11-08] MEDS: METHIMAZOLE 5 MG TAB PO SCH (12:07)
[2017-11-08] MEDS: FERROUS SULFATE 325 MG (65 MG ELEMENTAL IRON) TAB PO SCH (12:07)
[2017-11-08] MEDS: ONDANSETRON HCL 4 MG/2 ML VIAL IV PUSH PRN (12:11)
[2017-11-08 12:16] VITALS: BP 180/90; PULSE 55; RESP 14; TEMP 95.6; O2SAT 98
--- NOTE | 2017-11-08 12:20 | EKG ---
Date Performed: 11/08/2017 Time Performed: 00:57:00 PTAGE: 87 years EKG: Sinus bradycardia with PAC(s). Right bundle branch block Abnormal ECG PREVIOUS TRACING : 10/08/2016 09.41 Since the prior tracing, there has been no significant luther DOCTOR: Damien Donovan Interpretating Date/Time 11/08/2017 12:18:41
[2017-11-08] MEDS ORDERED: DO NOT ADM ANY ANTICOAGULANT DRUGS PRN (13:45)
[2017-11-08 13:52] VITALS: BP 149/70; PULSE 67; RESP 17; TEMP 96.1; O2SAT 99
[2017-11-08 16:00] VITALS: BP 155/65; PULSE 54; RESP 17; TEMP 96.1; O2SAT 98
--- NOTE | 2017-11-08 16:25 | HHI.DS ---
Discharge Summary Admission Date Nov 04, 2017 at 15:18 Admitting Diagnosis GI bleed (1) GI bleed ICD Codes: K92.2 - Gastrointestinal hemorrhage, unspecified Status: Acute (2) Anemia ICD Codes: D64.9 - Anemia, unspecified (3) HTN (hypertension) ICD Codes: I10 - Essential (primary) hypertension (4) Hyperthyroidism ICD Codes: E05.90 - Thyrotoxicosis, unspecified without thyrotoxic crisis or storm (5) Hx of benign carcinoid tumor ICD Codes: Z86.012 - Personal history of benign carcinoid tumor (6) CKD (chronic kidney disease) stage 3, GFR 30-59 ml/min ICD Codes: N18.3 - Chronic kidney disease, stage 3 (moderate) Brief History Mr. Torre is a pleasant 87 y/o WM with hx of carcinoid tumor, follows with Dr. Chadwick and is on monthly Octreotide injections, hx of achalasia/dysphagia and had an EGD with Botox injections in September 2016, HTN, and CKD stage 3. Pt was recently hospitalized at [facility] for about 8 days with GIB. Pts Hgb was around 8-9 initially. He was seen by GI and had an EGD and a colonoscopy which did not reveal any active bleeding. He also had two Nuclear Med GIB scans which were reportedly negative. His Hgb went down to 7 and he received one unit of PRBCs at . Pts H/H reportedly stabilized around 8.5 and the pt was discharged to home 2 days ago. Pt was recommended that should he continue to have bleeding that he had a double balloon enteroscopy. This morning he had a loose stool and was noted to have bright red blood. He had some mild cramping associated with the BM. This prompted him to come to the ED for further evaluation. His labs in the ED noted Hgb 7.9/Hct 23.7. He denies any chest pain, SOB, palpations, nausea/vomiting. He did have some mild dizziness today after walking to the bathroom. CBC/BMP: 11/08/17 0817 11/08/17 0817 Significant Findings Laboratory Tests Test 11/05/17 17:44 11/06/17 09:47 11/07/17 05:26 11/08/17 08:17 Hemoglobin 8.7 GM/DL (13.0-17.0) 8.4 GM/DL (13.0-17.0) 9.4 GM/DL (13.0-17.0) 9.5 GM/DL (13.0-17.0) Hematocrit 25.1 % (39.0-51.0) 24.5 % (39.0-51.0) 26.7 % (39.0-51.0) 27.6 % (39.0-51.0) Red Blood Count 3.02 MIL/MM3 (4.50-5.90) 3.06 MIL/MM3 (4.50-5.90) Monocytes (%) (Auto) 13.1 % (0.0-8.0) 11.9 % (0.0-8.0) Blood Urea Nitrogen 33 MG/DL (7-18) 33 MG/DL (7-18) Creatinine 2.07 MG/DL (0.60-1.30) 2.19 MG/DL (0.60-1.30) Random Glucose 118 MG/DL (74-106) 121 MG/DL (74-106) Calcium Level 8.4 MG/DL (8.5-10.1) Chloride Level 108 MEQ/L (98-107) Estimat Glomerular Filtration Rate 31 ML/MIN (>89) 29 ML/MIN (>89) PE at Discharge General: NAD, AAox3 Chest: CTA Cardiac: Regular Abd: +BS, soft ND/NT Ext: No edema Pt Condition on Discharge: Stable Discharge Disposition: Discharge Home Discharge Instructions DIET: Follow Instructions for: Heart Healthy Diet Activities you can perform: Regular-No Restrictions Emmett Kirkpatrick DO Nov 08, 2017 16:25
[2017-11-08 18:10] LABS: AUTOMATED NEUTROPHIL # 6.3 TH/MM3 (1.8-7.7); BASOPHIL % 0.6 % (0.0-2.0); EOSINOPHIL # 0.1 TH/MM3 (0-0.4); EOSINOPHIL % 0.7 % (0.0-4.0); HEMATOCRIT 27.8 % (39.0-51.0); HEMOGLOBIN 9.6 GM/DL (13.0-17.0); LYMPH % 12.7 % (9.0-44.0); MEAN CELL VOLUME 91.5 FL (80.0-100.0); MEAN CORPUSCULAR HEMOGLOBIN 31.5 PG (27.0-34.0); MEAN CORPUSCULAR HGB CONC 34.4 % (32.0-36.0); MEAN PLATELET VOLUME 8.2 FL (7.0-11.0); MONO % 9.4 % (0.0-8.0); MONOCYTE # 0.8 TH/MM3 (0-0.9); NEUT % 76.6 % (16.0-70.0); PLATELET COUNT 215 TH/MM3 (150-450); RED BLOOD COUNT 3.04 MIL/MM3 (4.50-5.90); RED CELL DISTRIBUTION WIDTH 15.6 % (11.6-17.2); WHITE BLOOD COUNT 8.2 TH/MM3 (4.0-11.0)
== END 2017-11-08 18:41 | disposition home or self-care (01) | DRG 378 ==
LOC: NEPC 12:09 → NEDA 15:18 → N07B 18:14
PROVIDERS: ADMIT Hospitalist; ATTEND Hospitalist
PROC: 30233N1 Transfusion of Nonautologous Red Blood Cells into Peripheral Vein, Percutaneous Approach (ICD-10-PCS; 2017-11-04)
PROC: B41B1ZZ Fluoroscopy of Other Intra-Abdominal Arteries using Low Osmolar Contrast (ICD-10-PCS; 2017-11-05)
PROC: B4141ZZ Fluoroscopy of Superior Mesenteric Artery using Low Osmolar Contrast (ICD-10-PCS; 2017-11-05)
PROC: 0DJ08ZZ Inspection of Upper Intestinal Tract, Via Natural or Artificial Opening Endoscopic (ICD-10-PCS; principal; 2017-11-08 10:34)
DX: K92.1 Melena (principal); I77.4 Celiac artery compression syndrome; N18.3 Chronic kidney disease, stage 3 (moderate); E05.90 Thyrotoxicosis, unspecified without thyrotoxic crisis or storm; I12.9 Hypertensive chronic kidney disease with stage 1 through stage 4 chronic kidney disease, or unspecified chronic kidney disease; K21.9 Gastro-esophageal reflux disease without esophagitis; I86.8 Varicose veins of other specified sites; K80.20 Calculus of gallbladder without cholecystitis without obstruction; F41.9 Anxiety disorder, unspecified; Z23 Encounter for immunization; Z86.012 Personal history of benign carcinoid tumor; Z87.891 Personal history of nicotine dependence
CPT/HCPCS: 36245; 36246; 36430; 75726; 75774; 76705; 76937; 78278; 80048; 80053; 83735; 85014; 85018; 85025; 85610; 85730; 86850; 86900; 86901; 86920; 90732; 93005; 99152; 99153; A9560; C1769; C1887; C9113; J1642; J2250; J2370; J2405; J3010; J7120; P9016; Q9967